=== PATIENT | female | born 1960 | race Caucasian/White ===

== ENCOUNTER → 2018-02-12 | Outpatient (CLI) | payer BC ==
[~2018-02-12] MED LIST: IOHEXOL 350 MG/ML 100 ML (OMNIPAQUE 350) VIAL IV ONE; NS 250 ML (IVPB) BAG IV ONE
[2018-02-12 14:55] LABS: BASOPHILS % (AUTO) 1 % (0-10); EOSINOPHILS # (AUTO) 0.2 10^3/uL (0.0-0.3); EOSINOPHILS % (AUTO) 3 % (0-10); HEMATOCRIT 42 % (35-52); HEMOGLOBIN 14.2 G/DL (11.5-16.0); LYMPHOCYTES # (AUTO) 2.1 X 10^3 (1.0-4.0); LYMPHOCYTES % (AUTO) 29 % (12-44); MEAN CORPUSCULAR HEMOGLOBIN 30 PG (25-34); MEAN CORPUSCULAR HGB CONC 34 G/DL (32-36); MEAN CORPUSCULAR VOLUME 89 FL (80-99); MEAN PLATELET VOLUME 9.9 FL (7.4-10.4); MONOCYTES # (AUTO) 0.5 X 10^3 (0.0-1.0); MONOCYTES % (AUTO) 6 % (0-12); NEUTROPHILS # (AUTO) 4.4 X 10^3 (1.8-7.8); NEUTROPHILS % (AUTO) 61 % (42-75); PLATELET COUNT 317 10^3/uL (130-400); RED BLOOD COUNT 4.72 10^6/uL (4.35-5.85); RED CELL DISTRIBUTION WIDTH 13.6 % (10.0-14.5); WHITE BLOOD COUNT 7.2 10^3/uL (4.3-11.0)
[2018-02-12 15:18] LABS: ALANINE AMINOTRANSFERASE 21 U/L (0-55); ALBUMIN 4.7 GM/DL (3.2-4.5); ALKALINE PHOSPHATASE 38 U/L (40-136); BILIRUBIN,TOTAL 0.5 MG/DL (0.1-1.0); BUN/CREATININE RATIO 15; CALCIUM 9.3 MG/DL (8.5-10.1); CARBON DIOXIDE 22 MMOL/L (21-32); CHLORIDE 105 MMOL/L (98-107); CREATININE SERUM 0.96 MG/DL (0.60-1.30); GFR ESTIMATED 60; GLUCOSE 98 MG/DL (70-105); SODIUM 139 MMOL/L (135-145); TOTAL PROTEIN 8.1 GM/DL (6.4-8.2)
--- NOTE | 2018-02-12 16:32 | Diagnostic Imaging Report ---
PROCEDURE: CT abdomen and pelvis with contrast. TECHNIQUE: Multiple contiguous axial images were obtained through the abdomen and pelvis after administration of intravenous contrast. INDICATION: Right upper quadrant pain, anteriorly and posteriorly. Pain has been intermittent over the past 2 weeks but increasing in severity. CORRELATION STUDY: None. FINDINGS: LOWER THORAX: Minimal atelectasis and/or scarring about the lung bases. No significant basilar infiltrate. LIVER: Several tiny low-density nodules within the liver most compatible with cysts. Liver otherwise unremarkable. GALLBLADDER: Present and unremarkable. No bile duct dilatation. SPLEEN: Unremarkable. PANCREAS: There is abnormal appearance at the level of the pancreatic head with a somewhat honeycombed appearance of what appears to be perhaps multiple microcysts associated with the pancreatic head. This area measures approximately 2.4 x 1.8 cm in axial plane x just under 5 cm craniocaudal length. Some enhancement of the septa appears to be present. The remainder of the body and tail of pancreas unremarkable. Main pancreatic duct does not appear to be abnormally dilated. ADRENAL GLANDS: Unremarkable. KIDNEYS: Probable tiny cyst in left kidney. Kidneys and collecting system otherwise unremarkable. ABDOMINAL AORTA: 1.5 cm splenic artery aneurysm is present which demonstrates predominantly filling of the entire aneurysm with contrast. The abdominal aorta normal in contour with major branches patent. A few small but nonpathologically enlarged central retroperitoneal lymph nodes are present. GASTROINTESTINAL TRACT: No evidence for underlying obstruction. There is suggestion of somewhat diffuse distended fluid-filled loops of small bowel with moderate enhancement. Some areas of asymmetric small bowel wall thickening in the left upper quadrant. Colon with moderate severity fecal retention. No obstruction. Appendix not demonstrated but there are no findings to suggest acute appendicitis. URINARY BLADDER: Unremarkable. REPRODUCTIVE: Uterus is absent. Multiple clips within the pelvis. OSSEOUS STRUCTURES: No acute abnormality. Multilevel degenerative changes are present. Most severe at L5-S1 level with marked disc space narrowing. Osteophyte results in osseous narrowing of the neuroforamina. OTHER: None. IMPRESSION: 1. Suggestion of diffuse enhancement and wall thickening of the small bowel most pronounced in left upper quadrant could reflect nonspecific enteritis or underlying enteropathy. 2. Suggestion of abnormal appearance about the head of the pancreas. Imaging features are nonspecific but could be reflective of changes of perhaps pancreatic serous cystadenoma/microcystic adenoma. Other processes such as intraductal papillary mucinous neoplasm or perhaps other form of pancreatic congenital cyst formation could give this appearance. Consideration for either MRI with and without contrast and/or endoscopic ultrasound may be of additional benefit for further characterization. 3. Approximately 15 mm splenic artery aneurysm. Majority of the aneurysm appears to demonstrate contrast filling. 4. Moderate severity fecal retention/constipation. Dictated by: Dictated on workstation # [id number]
[2018-02-12 17:52] LABS: AMYLASE 130 U/L (25-125)
[2018-02-12 18:16] LABS: LIPASE 50 U/L (8-78)
== END ==
LOC: RAD 14:37
PROVIDERS: ATTEND Nurse Practitioner Family
DX: K59.00 Constipation, unspecified (principal); I72.8 Aneurysm of other specified arteries; Z87.442 Personal history of urinary calculi
CPT/HCPCS: 36415; 74177; 80053; 82150; 83690; 85025

== ENCOUNTER → 2018-02-27 | Outpatient (CLI) | payer BC ==
[~2018-02-27] MED LIST changes: +GADOBUTROL 7.5 MMOL/7.5 ML (GADAVIST) VIAL IV ONE; -IOHEXOL 350 MG/ML 100 ML (OMNIPAQUE 350) VIAL IV ONE; -NS 250 ML (IVPB) BAG IV ONE
--- NOTE | 2018-02-27 10:59 | Diagnostic Imaging Report ---
PROCEDURE: MR imaging abdomen with and without contrast. TECHNIQUE: Multiplanar, multisequence MR imaging of the abdomen was performed with and without contrast. INDICATION: Right-sided pain. Abnormal appearance of the pancreatic head as seen at CT 02/12/2018. Multiplanar and multisequence contrast assisted abdominal MRI utilizing pancreatic protocol performed as further evaluation. A cyst in the right hepatic lobe is simple. There was no enhancing solid or suspicious liver mass. Hepatic and portal veins appeared normal. There are a few stones in the gallbladder. The gallbladder was nondilated its wall non-thickened and there was no pericholecystic fluid. The common hepatic and common bile ducts appeared normal with normal caliber and normal distal tapering. No ductal irregularity, filling defect, stricture or choledocholithiasis. The pancreatic duct is nondilated and showed a normal caliber and course throughout its length without distortion of that duct. No pancreatic glandular atrophy or volume loss. Appearing similar to the previous CT and the ventral aspect of the pancreatic head sparing the uncinate process is a relative diminished signal intensity on the postcontrast enhanced images also showing diminished signal on the opposed phase sequences. This exerts no mass effect and showed no distortion of ductal elements and resulted in no glandular expansion. The area of altered signal intensity measured roughly 1.7 x 1.5 cm. Given its abrupt signal drop off on the opposed phased imaging as well as its relative diminished signal on the fat saturated postcontrast enhanced T1 acquisitions its felt likely to reflect an area of focal fatty infiltration with neoplasm felt significantly less likely. I feel a followup either MR or CT again utilizing pancreatic protocol in 3-6 months time is appropriate to assess expected stability if not resolution of this likely benign finding. Spleen and adrenals are negative and there is no ascites. There is no lymphadenopathy. The marrow signal intensity normal. IMPRESSION: Imaging findings suggest mild fatty infiltration of the pancreatic head appearing similar when correlated with the previous CT. No identifiable mass effect or ductal dilatation or distortion. Anatomic CT versus MRI follow up again to include contrast and pancreatic protocol in 3-6 months time is recommended. Benign hepatic cysts and cholelithiasis without ductal dilatation or choledocholithiasis. Dictated by: Dictated on workstation # [id number]
== END ==
LOC: RAD 09:27
PROVIDERS: ATTEND Nurse Practitioner Family
DX: K76.89 Other specified diseases of liver (principal); K80.20 Calculus of gallbladder without cholecystitis without obstruction
CPT/HCPCS: 74183

== ENCOUNTER 2018-11-09 16:51 | Day surgery (SDC) | payer BC ==
[~2018-11-09] VITALS: Ht 167.6 cm; Wt 71.2 kg
[~2018-11-09 16:51] MED LIST changes: +CYCL10TA9 PO; -GADOBUTROL 7.5 MMOL/7.5 ML (GADAVIST) VIAL IV ONE; +HYDR1TAB8 PO
--- OUTSIDE RECORDS SUMMARY | 2018-11-09 16:55 | XMS REPORT | Clinical Summary ---
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 If you d o not see the information that you expected, contact Release of Information in [facility] [place] [employer] Information Management department at [phone] for further assistan ce in locating additional records.[facility] Allergies No Known Allergies Medications End Date Status Medication Sig Dispensed Refills Start Date Active pantoprazole DR Take 40 mg by 0 (PROTONIX) 40 mg tablet mouth daily. 8 Active traMADol (ULTRAM) 50 mg Take 50 mg by 0 tablet mouth twice 6 daily as needed. Active Problems Problem Noted Date Splenic artery aneurysm 03/17/2018 Social History Date Tobacco Use Types Packs/Day Years Used Former Smoker Smokeless Tobacco: Never Used Sex Assigned at Date Recorded Not on file Industry Job Start Date Occupation Not on file Not on file Not on file Travel End Travel History Travel Start No recent travel history available. Last Filed Vital Signs Reading Time Taken Comments Vital Sign 114/72 03/17/2018 1:17 PM [employer] left arm Blood Pressure 78 03/17/2018 1:17 PM [employer] Pulse 36.7 C (98 F) 03/17/2018 1:17 PM [employer] Temperature 16 03/17/2018 1:17 PM [employer] Respiratory Rate - - Oxygen Saturation - - Inhaled Oxygen Concentration 72.1 kg (159 lb) 03/17/2018 1:17 PM [employer] Weight 167.6 cm (5' 6") 03/17/2018 1:17 PM [employer] Height 25.66 03/17/2018 1:17 PM [employer] Body Mass Index Plan of Treatment Health Maintenance Due Date Last Done Comments HEPATITIS C SCREENING 1961 PHYSICAL (COMPREHENSIVE) 1968 EXAM HIV SCREENING 1976 DTAP/TDAP VACCINES (1 - 08/18/1979 Tdap) CERVICAL CANCER SCREENING 08/18/1991 BREAST CANCER SCREENING 2001 COLORECTAL CANCER 08/18/2011 SCREENING SHINGLES RECOMBINANT 08/18/2011 VACCINE (1 of 2) INFLUENZA VACCINE 02/01/2019 Results Not on filefrom Last 3 Months Insurance Type Payer Benefit Subscriber ID Effective Phone Address Plan / Dates Group [facility] xxxxxxxxxxxx [id number] [employer] 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
--- OUTSIDE RECORDS SUMMARY | 2018-11-09 16:56 | XMS REPORT | CCD ---
Author Author Joanna Vickers MD, [facility] Address [address] [place] [address] Phone Care Team Providers Care Cyber [employer] Planner Name Role Phone PP Unavailable CCM Unavailable Summary Purpose Interface Exchange Insurance Providers Payer name Policy type / Coverage type Covered libertarian ID Effective Begin Date Effective End Date Blue Cross Blue [facility] [employer] [id number] Unknown Family history Mother Diagnosis Age At Onset Hyperlipidemia Unknown Social History Social History Element Codes Description Effective Dates Marital status Unknown [place] 12/25/2015 Number of children Unknown 2 12/25/[address]: 0082769 Quit over 10 years ago 1992 12/25/[address]: 388629 Currently drinks alcohol 12/25/2015 Frequency of drinks SNOMED CT: 617334263 1- 4 drinks per week 12/25/2015 Allergies, Adverse Reactions, Alerts Substance Reaction Codes Entered Date Inactivated Date Status * NO KNOWN DRUG ALLERGIES Unknown 12/25/2015 No Inactive Date Active Past Medical History Illness Codes Condition Status Onset Date Resolved Date Cellulitis of left upper limb ICD-9: 682.3 ICD-10: L03.114 Active 11/08/2018 Unknown Low back pain ICD-9: 724.2 ICD-10: M54.5 Active 04/22/2017 Unknown Muscle spasm of back ICD- 9: 724.8 ICD-10: M62.830 Active 04/22/2017 Unknown Generalized abdominal pain ICD-9: 789.07 ICD-10: R10.84 Active 02/12/2018 Unknown Right upper quadrant pain ICD-9: 789.01 ICD-10: R10.11 Active 12/24/2015 Unknown Slow transit constipation ICD-9: 564.01 ICD-10: K59.01 Active 02/12/2018 Unknown Urinary tract infection, site not specified ICD-9: 599.0 ICD-10: N39.0 Active 09/14/2017 Unknown Other fatigue ICD-9: 780.79 ICD-10: R53.83 Active 04/22/2017 Unknown Other malaise ICD-9: 780.79 ICD-10: R53.81 Active 04/22/2017 Unknown Problems Condition Codes Effective Dates Condition Status Cellulitis of left upper limb ICD-9: 682.3 ICD-10: L03.114 11/08/2018 Active Low back pain ICD-9: 724.2 ICD-10: M54.5 04/22/2017 Active Muscle spasm of back ICD- 9: 724.8 ICD-10: M62.830 04/22/2017 Active Generalized abdominal pain ICD-9: 789.07 ICD-10: R10.84 02/12/2018 Active Right upper quadrant pain ICD-9: 789.01 ICD-10: R10.11 12/24/2015 Active Slow transit constipation ICD-9: 564.01 ICD-10: K59.01 02/12/2018 Active Urinary tract infection, site not specified ICD-9: 599.0 ICD-10: N39.0 09/14/2017 Active Other fatigue ICD-9: 780.79 ICD-10: R53.83 04/22/2017 Active Other malaise ICD-9: 780.79 ICD-10: R53.81 04/22/2017 Active Medications Medication Codes Instructions Start Date Stop Date Status Fill Instructions doxycycline hyclate 100 mg capsule RxNorm: 1059592 1 Capsule(s) PO BID 11/08/2018 11/17/2018 Active cyclobenzaprine 5 mg tablet RxNorm: 911067 1-2 Tablet(s) PO TID as needed 06/14/2018 06/18/2018 Inactive naproxen 500 mg tablet RxNorm: 340755 1 Tablet(s) PO BID 06/14/2018 06/18/2018 Inactive pantoprazole 40 mg tablet,delayed release RxNorm: 326320 1 Tablet(s) PO daily 06/01/2018 06/30/2018 Inactive tramadol 50 mg tablet RxNorm: 122419 1 Tablet(s) PO Q6 as needed 06/01/2018 No Stop Date Active tramadol 50 mg tablet RxNorm: 213376 1 Tablet(s) PO Q6 as needed 05/11/2018 05/31/2018 Inactive tramadol 50 mg tablet RxNorm: 317588 1 Tablet(s) PO Q6 as needed 04/21/2018 05/10/2018 Inactive tramadol 50 mg tablet RxNorm: 907148 1 Tablet(s) PO Q6 as needed 04/02/2018 04/20/2018 Inactive tramadol 50 mg tablet RxNorm: 816516 1 Tablet(s) PO Q6 as needed 03/18/2018 04/01/2018 Inactive pantoprazole 40 mg tablet,delayed release RxNorm: 387600 1 Tablet(s) PO daily 02/26/2018 02/25/2018 Inactive pantoprazole 40 mg tablet,delayed release RxNorm: 040316 1 Tablet(s) PO daily 02/26/2018 03/27/2018 Inactive tramadol 50 mg tablet RxNorm: 050181 1 Tablet(s) PO Q6 as needed 02/26/2018 03/17/2018 Inactive Keflex 500 mg capsule RxNorm: 677157 1 Capsule(s) PO TID 09/14/2017 09/20/2017 Inactive Keflex 500 mg capsule RxNorm: 139032 1 Capsule(s) PO TID 09/14/2017 09/13/2017 Inactive cyclobenzaprine 5 mg tablet RxNorm: 217111 1-2 Tablet(s) PO TID as needed 04/22/2017 04/26/2017 Inactive tramadol 50 mg tablet RxNorm: 606128 Tablet(s) PO Q6 as needed 12/25/2015 02/25/2018 Inactive Vitamin B & C oral RxNorm: 400727 oral No Start Date Active Multiple Vitamin oral RxNorm: 61154 oral No Start Date Active tramadol 50 mg tablet RxNorm: 996210 Tablet(s) PO as needed No Start Date 12/24/2015 Inactive Medication Administered No Medication Administered data Immunizations No Immunization data Assessments Condition Codes Effective Dates Cellulitis of left upper limb ICD-10: L03.114 ICD-9: 682.3 11/08/2018 Low back pain ICD-10: M54.5 ICD-9: 724.2 06/14/2018 Muscle spasm of back ICD-10: M62.830 ICD-9: 724.8 06/14/2018 Right upper quadrant pain ICD-10: R10.11 ICD-9: 789.01 02/12/2018 Slow transit constipation ICD-10: K59.01 ICD-9: 564.01 02/12/2018 Generalized abdominal pain ICD-10: R10.84 ICD-9: 789.07 02/12/2018 Urinary tract infection, site not specified ICD-10: N39.0 ICD-9: 599.0 09/14/2017 Other fatigue ICD-10: R53.83 ICD-9: 780.79 04/22/2017 Other malaise ICD-10: R53.81 ICD-9: 780.79 04/22/2017 Reason For Visit Reason For Visit Effective Dates Notes arthropod bite 11/08/2018 back pain 06/14/2018 abdominal pain 02/12/2018 back pain 04/22/2017 abdominal pain 12/25/2015 Results Observation Observation Code Item Item Code Result Date Urine Culture Ucult Complete >100,000 col/ml aerobic growth sent to ref lab 09/15/2017 [place] Spotted Fever Igg/Igm [id number] [place] SPOTTED FEVER IGM EIA . 04/30/2017 [place] Spotted Fever Igg/Igm 096240 RMSF, IGM 0.17 index 04/30/2017 [place] Spotted Fever Igg/Igm [id number] [place] MT SPOTTED FEVER IGG EIA FLEX . 04/30/2017 [place] Spotted Fever Igg/Igm [id number] RMSF, IGG SCREEN-FLEX Negative 04/30/2017 Ehrlichia Chaffeensis Antibody Igm [id number] EHRLICHIA CHAFFEENSIS IGM < 1:16 04/29/2017 Ehrlichia Chaffeensis Antibody Igg [id number] EHRLICHIA CHAFFEENSIS IGG <1:64 04/29/2017 Lymes Disease Total Antibodies With Western Blot Reflex [id number] B. BURGDORFERI, IGG/IGM 0.31 04/24/2017 Lymes Disease Total Antibodies With Western Blot Reflex [id number] 04/24/2017 Tsh Ord6 hTSH II 2.10 uIU/mL 04/22/2017 C-Reactive Protein Qnt Crqnt CRP 0.1 mg/dl 04/22/2017 Cbc With Differential Ord2 WBC 7.35 K/ul 04/22/2017 Cbc With Differential Ord2 RBC 5.00 M/ul 04/22/2017 Cbc With Differential Ord2 HGB 15.0 g/dl 04/22/2017 Cbc With Differential Ord2 HCT 45.0 % 04/22/2017 Cbc With Differential Ord2 Neut% 57.6 % 04/22/2017 Cbc With Differential Ord2 MCV 90.0 fl 04/22/2017 Cbc With Differential Ord2 Lymph% 32.0 % 04/22/2017 Cbc With Differential Ord2 MCH 30.0 pg 04/22/2017 Cbc With Differential Ord2 [place]% 6.9 % 04/22/2017 Cbc With Differential Ord2 MCHC 33.3 pg 04/22/2017 Cbc With Differential Ord2 Eos% 3.1 % 04/22/2017 Cbc With Differential Ord2 PLT 291 K/ul 04/22/2017 Cbc With Differential Ord2 Baso% 0.4 % 04/22/2017 Cbc With Differential Ord2 RDW 14.0 % 04/22/2017 Cbc With Differential Ord2 Neut ABS# 4.23 K/ul 04/22/2017 Cbc With Differential Ord2 Lymph ABS# 2.35 K/ul 04/22/2017 Cbc With Differential Ord2 [place] ABS# 0.5 K/ul 04/22/2017 Cbc With Differential Ord2 Eos ABS# 0.2 K/ul 04/22/2017 Cbc With Differential Ord2 Baso ABS# 0.0 K/ul 04/22/2017 Comp Metabolic Dzf644 NA 138 mEq/L 04/22/2017 Comp Metabolic Aed126 K 4.5 mEq/L 04/22/2017 Comp Metabolic Icb704 CL 102 mEq/L 04/22/2017 Comp Metabolic The086 CO2 26.0 mEq/L 04/22/2017 Comp Metabolic Yhl947 ANION GAP 15 04/22/2017 Comp Metabolic Zfs545 GLUCOSE 87 mg/dL 04/22/2017 Comp Metabolic Bec876 Creat 1.0 mg/dL 04/22/2017 Comp Metabolic Xiz301 eGFR 62 ml/min/1.73m2 04/22/2017 Comp Metabolic Wjq262 BUN 15 mg/dL 04/22/2017 Comp Metabolic Ohq507 B/C Ratio 15.3 Ratio 04/22/2017 Comp Metabolic Nsg361 CALCIUM 9.5 mg/dL 04/22/2017 Comp Metabolic Gdv760 ALK PHOS 39 U/L 04/22/2017 Comp Metabolic Sar608 AST(SGOT) 18 U/L 04/22/2017 Comp Metabolic Frx670 ALT(SGPT) 16 U/L 04/22/2017 Comp Metabolic Tlm884 BILI T 0.4 mg/dL 04/22/2017 Comp Metabolic Chh399 ALBUMIN 4.8 g/dL 04/22/2017 Comp Metabolic Mfg195 TPRO 7.1 g/dL 04/22/2017 Comp Metabolic Ven053 GLOB 2.3 g/dL 04/22/2017 Comp Metabolic Cjo137 A/G Ratio 2.1 Ratio 04/22/2017 Comp Metabolic Rxj888 Osmo 276 mOsmo 04/22/2017 Sed Rate Ord21 ESR 1 mm/hr 04/22/2017 Comp Metabolic Zvt412 NA 137 mEq/L 12/25/2015 Comp Metabolic Lof248 K 4.2 mEq/L 12/25/2015 Comp Metabolic Wgp979 CL 105 mEq/L 12/25/2015 Comp Metabolic Ami598 CO2 26.0 mEq/L 12/25/2015 Comp Metabolic Idm768 ANION GAP 10 12/25/2015 Comp Metabolic Ols912 GLUCOSE 92 mg/dL 12/25/2015 Comp Metabolic Ezv822 Creat 1.0 mg/dL 12/25/2015 Comp Metabolic Qzh357 eGFR 62 ml/min/1.73m2 12/25/2015 Comp Metabolic Why799 BUN 15 mg/dL 12/25/2015 Comp Metabolic Mxo618 B/C Ratio 15.2 Ratio 12/25/2015 Comp Metabolic Apn538 CALCIUM 9.6 mg/dL 12/25/2015 Comp Metabolic Skf524 ALK PHOS 30 U/L 12/25/2015 Comp Metabolic Nke754 AST(SGOT) 17 U/L 12/25/2015 Comp Metabolic Top491 ALT(SGPT) 16 U/L 12/25/2015 Comp Metabolic Oxd161 BILI T 0.6 mg/dL 12/25/2015 Comp Metabolic Gsp797 ALBUMIN 4.7 g/dL 12/25/2015 Comp Metabolic Izz836 TPRO 7.0 g/dL 12/25/2015 Comp Metabolic Trk764 GLOB 2.3 g/dL 12/25/2015 Comp Metabolic Gjy180 A/G Ratio 2.0 Ratio 12/25/2015 Comp Metabolic Btn797 Osmo 274 mOsmo 12/25/2015 Amylase Ord34 AMYLASE 68 U/L 12/25/2015 Lipid Ord30 CHOL 253 mg/dL 12/25/2015 Lipid Ord30 HDL 61.0 mg/dl 12/25/2015 Lipid Ord30 TRIG 75 mg/dL 12/25/2015 Lipid Ord30 LDL 177 mg/dL 12/25/2015 Lipid Ord30 C/HDL 4.1 Ratio 12/25/2015 Cbc With Differential Ord2 WBC 4.75 K/ul 12/25/2015 Cbc With Differential Ord2 RBC 4.95 M/ul 12/25/2015 Cbc With Differential Ord2 HGB 15.0 g/dl 12/25/2015 Cbc With Differential Ord2 HCT 44.2 % 12/25/2015 Cbc With Differential Ord2 Neut% 55.2 % 12/25/2015 Cbc With Differential Ord2 MCV 89.3 fl 12/25/2015 Cbc With Differential Ord2 Lymph% 32.8 % 12/25/2015 Cbc With Differential Ord2 MCH 30.3 pg 12/25/2015 Cbc With Differential Ord2 [place]% 8.0 % 12/25/2015 Cbc With Differential Ord2 MCHC 33.9 pg 12/25/2015 Cbc With Differential Ord2 Eos% 3.4 % 12/25/2015 Cbc With Differential Ord2 PLT 249 K/ul 12/25/2015 Cbc With Differential Ord2 Baso% 0.6 % 12/25/2015 Cbc With Differential Ord2 RDW 13.5 % 12/25/2015 Cbc With Differential Ord2 Neut ABS# 2.62 K/ul 12/25/2015 Cbc With Differential Ord2 Lymph ABS# 1.56 K/ul 12/25/2015 Cbc With Differential Ord2 [place] ABS# 0.4 K/ul 12/25/2015 Cbc With Differential Ord2 Eos ABS# 0.2 K/ul 12/25/2015 Cbc With Differential Ord2 Baso ABS# 0.0 K/ul 12/25/2015 Tsh Ord6 hTSH II 0.99 uIU/mL 12/25/2015 Review of Systems System Result Effective Dates Constitutional No recent illness 11/08/2018 Constitutional No chills 11/08/2018 Constitutional No diaphoresis 11/08/2018 Constitutional No fever 11/08/2018 Eyes No eye erythema 11/08/2018 Ears/Nose/Throat/Neck No nasal discharge 11/08/2018 Cardiovascular No chest pain/pressure 11/08/2018 Respiratory No cough 11/08/2018 Neurologic No alteration of consciousness 11/08/2018 Neurologic No mental status change 11/08/2018 Dermatologic cellulitis 11/08/2018 Constitutional No recent illness 06/14/2018 Constitutional No chills 06/14/2018 Constitutional No fever 06/14/2018 Eyes No eye erythema 06/14/2018 Ears/Nose/Throat/Neck No nasal discharge 06/14/2018 Cardiovascular No chest pain/pressure 06/14/2018 Cardiovascular No dyspnea 06/14/2018 Respiratory No cough 06/14/2018 Respiratory No dyspnea 06/14/2018 Musculoskeletal joint complaint 06/14/2018 Neurologic No alteration of consciousness 06/14/2018 Neurologic No mental status change 06/14/2018 Genitourinary/Nephrology flank pain 06/14/2018 Constitutional No recent illness 02/12/2018 Constitutional No chills 02/12/2018 Constitutional No diaphoresis 02/12/2018 Constitutional No fever 02/12/2018 Constitutional fatigue 02/12/2018 Eyes No eye erythema 02/12/2018 Ears/Nose/Throat/Neck No nasal discharge 02/12/2018 Ears/Nose/Throat/Neck No nasal allergies 02/12/2018 Cardiovascular No chest pain/pressure 02/12/2018 Cardiovascular No dyspnea 02/12/2018 Respiratory No cough 02/12/2018 Respiratory No chest congestion 02/12/2018 Gastrointestinal abdominal pain 02/12/2018 Gastrointestinal No constipation 02/12/2018 Gastrointestinal No diarrhea 02/12/2018 Gastrointestinal No vomiting 02/12/2018 Gastrointestinal No nausea 02/12/2018 Gastrointestinal No melena 02/12/2018 Gastrointestinal No hematochezia 02/12/2018 Gastrointestinal gastroesophageal reflux 02/12/2018 Genitourinary/Nephrology No dysuria 02/12/2018 Genitourinary/Nephrology flank pain 02/12/2018 Musculoskeletal No joint complaint 02/12/2018 Dermatologic No rash 02/12/2018 Neurologic No alteration of consciousness 02/12/2018 Neurologic No mental status change 02/12/2018 Constitutional No recent illness 04/22/2017 Constitutional No chills 04/22/2017 Constitutional No diaphoresis 04/22/2017 Constitutional No fever 04/22/2017 Constitutional fatigue 04/22/2017 Constitutional malaise 04/22/2017 Constitutional insomnia 04/22/2017 Constitutional weight gain 04/22/2017 Eyes No eye erythema 04/22/2017 Ears/Nose/Throat/Neck No nasal discharge 04/22/2017 Ears/Nose/Throat/Neck No nasal allergies 04/22/2017 Cardiovascular No chest pain/pressure 04/22/2017 Cardiovascular No dyspnea 04/22/2017 Respiratory No cough 04/22/2017 Respiratory No chest congestion 04/22/2017 Gastrointestinal No abdominal pain 04/22/2017 Gastrointestinal No constipation 04/22/2017 Gastrointestinal No diarrhea 04/22/2017 Musculoskeletal back pain 04/22/2017 Dermatologic No rash 04/22/2017 Neurologic No alteration of consciousness 04/22/2017 Neurologic No mental status change 04/22/2017 Constitutional No recent illness 12/25/2015 Constitutional No anorexia 12/25/2015 Constitutional No night sweats 12/25/2015 Constitutional No chills 12/25/2015 Constitutional No diaphoresis 12/25/2015 Constitutional No fatigue 12/25/2015 Constitutional No fever 12/25/2015 Constitutional No insomnia 12/25/2015 Constitutional No malaise 12/25/2015 Constitutional No weight loss 12/25/2015 Constitutional No weight gain 12/25/2015 Eyes No eye discharge 12/25/2015 Eyes No eye erythema 12/25/2015 Gastrointestinal abdominal pain 12/25/2015 Gastrointestinal No constipation 12/25/2015 Gastrointestinal No diarrhea 12/25/2015 Gastrointestinal No vomiting 12/25/2015 Gastrointestinal nausea 12/25/2015 Ears/Nose/Throat/Neck No dizziness 12/25/2015 Ears/Nose/Throat/Neck headache 12/25/2015 Cardiovascular No chest pain/pressure 12/25/2015 Cardiovascular No dyspnea 12/25/2015 Cardiovascular No edema 12/25/2015 Respiratory No cough 12/25/2015 Genitourinary/Nephrology No dysuria 12/25/2015 Genitourinary/Nephrology urinary frequency 12/25/2015 Genitourinary/Nephrology urinary urgency 12/25/2015 Musculoskeletal No joint complaint 12/25/2015 Dermatologic No rash 12/25/2015 Dermatologic No sores 12/25/2015 Neurologic No alteration of consciousness 12/25/2015 Psychiatric No anxiety 12/25/2015 Psychiatric No depression 12/25/2015 Endocrine No dry or coarse skin 12/25/2015 Hematologic/Lymphatic No abnormal ecchymoses 12/25/2015 Physical Exam Exam Name System Name Item Name Status Result Effective Dates Notes Full Exam - Dermatology Constitutional general appearance Overall: well nourished 11/08/2018 None Full Exam - Dermatology Constitutional general appearance Overall: well developed 11/08/2018 None Full Exam - Dermatology Constitutional general appearance Overall: in no acute distress 11/08/2018 None Full Exam - Dermatology Eyes conjunctiva/eyelids Overall: clear conjunctiva bilaterally 11/08/2018 None Full Exam - Dermatology Eyes conjunctiva/eyelids Overall: clear corneas 11/08/2018 None Full Exam - Dermatology Eyes conjunctiva/eyelids Overall: normal eyelids 11/08/2018 None Full Exam - Dermatology Ears/Nose/Throat lips/teeth/gingiva Overall: benign lips 11/08/2018 None Full Exam - Dermatology Ears/Nose/Throat oropharynx Overall: clear oral mucosa 11/08/2018 None Full Exam - Dermatology Respiratory respiratory effort/rhythm Overall: no retractions 11/08/2018 None Full Exam - Dermatology Respiratory respiratory effort/rhythm Overall: normal rate 11/08/2018 None Full Exam - Dermatology Musculoskeletal head and neck Overall: head atraumatic 11/08/2018 None Full Exam - Dermatology Psychiatric orientation Overall: oriented to person, place and time 11/08/2018 None Full Exam - Dermatology Psychiatric mood and affect Overall: normal mood and affect 11/08/2018 None Full Exam - Dermatology Integument insp & palp - left upper extremity Lesion: patch 11/08/2018 11cm x 7cm Full Exam - Dermatology Integument insp & palp - left upper extremity Location: in the antecubital fossa 11/08/2018 None Full Exam - Dermatology Integument insp & palp - left upper extremity Color: erythematous 11/08/2018 None Full Exam - Dermatology Integument insp & palp - left upper extremity Consistency: tender 11/08/2018 None Full Exam - Dermatology Integument insp & palp - left upper extremity Appearance: edematous 11/08/2018 None Full Exam - Orthopedics Constitutional general appearance Overall: well nourished 06/14/2018 None Full Exam - Orthopedics Constitutional general appearance Overall: well developed 06/14/2018 None Full Exam - Orthopedics Constitutional general appearance Overall: in no acute distress 06/14/2018 None Full Exam - Orthopedics Eyes conjunctiva/eyelids Overall: conjunctiva clear 06/14/2018 None Full Exam - Orthopedics Eyes conjunctiva/eyelids Overall: eyelids normal 06/14/2018 None Full Exam - Orthopedics Ears/Nose/Throat lips/teeth/gingiva Overall: benign lips 06/14/2018 None Full Exam - Orthopedics Ears/Nose/Throat oral cavity/pharynx/larynx Overall: oral mucosa clear 06/14/2018 None Full Exam - Orthopedics Respiratory respiratory effort/rhythm Overall: no retractions 06/14/2018 None Full Exam - Orthopedics Respiratory respiratory effort/rhythm Overall: normal rate 06/14/2018 None Full Exam - Orthopedics Psychiatric orientation/consciousness Overall: oriented to person, place and time 06/14/2018 None Full Exam - Orthopedics Psychiatric mood and affect Overall: normal mood and affect 06/14/2018 None Full Exam - Orthopedics Psychiatric appearance Overall: well-groomed, good eye contact 06/14/2018 None Full Exam - Orthopedics Musculoskeletal gait and station Overall: normal gait 06/14/2018 None Full Exam - Orthopedics MS: head/neck insp & palp - H/N Overall: head atraumatic 06/14/2018 None Full Exam - Orthopedics MS: spine/rib/pelvis insp & palp - S/R/P Lumbar spine palpation: tender lumbar spinous processes 06/14/2018 None Full Exam - Orthopedics MS: spine/rib/pelvis insp & palp - S/R/P Lumbar spine palpation: tender facet joints 06/14/2018 None Full Exam - General 1994 Constitutional general appearance Overall: well developed 02/12/2018 None Full Exam - General 1994 Constitutional general appearance Overall: in no acute distress 02/12/2018 None Full Exam - General 1994 Constitutional general appearance Overall: well nourished 02/12/2018 None Full Exam - General 1994 Eyes conjunctiva/eyelids Overall: eyelids normal 02/12/2018 None Full Exam - General 1994 Eyes conjunctiva/eyelids Overall: cornea clear 02/12/2018 None Full Exam - General 1994 Eyes conjunctiva/eyelids Overall: conjunctiva clear 02/12/2018 None Full Exam - General 1994 Ears/Nose/Throat lips/teeth/gingiva Overall: benign lips 02/12/2018 None Full Exam - General 1994 Ears/Nose/Throat oral cavity/pharynx/larynx Overall: oral mucosa clear 02/12/2018 None Full Exam - General 1994 Ears/Nose/Throat oral cavity/pharynx/larynx Overall: oropharyngeal mucosa clear 02/12/2018 None Full Exam - General 1994 Respiratory respiratory effort/rhythm Overall: normal rate 02/12/2018 None Full Exam - General 1994 Respiratory respiratory effort/rhythm Overall: no retractions 02/12/2018 None Full Exam - General 1994 Respiratory auscultation Overall: breath sounds clear bilaterally 02/12/2018 None Full Exam - General 1994 Cardiovascular auscultation of heart Overall: normal heart sounds 02/12/2018 None Full Exam - General 1994 Cardiovascular auscultation of heart Overall: regular rate 02/12/2018 None Full Exam - General 1994 Cardiovascular extremities Overall: no clubbing 02/12/2018 None Full Exam - General 1994 Abdomen abdominal exam Overall: normal bowel sounds 02/12/2018 None Full Exam - General 1994 Abdomen abdominal exam Upper quadrant: tender to palpation 02/12/2018 None Full Exam - General 1994 Abdomen abdominal exam Upper quadrant: dull pain 02/12/2018 None Full Exam - General 1994 Abdomen abdominal exam Upper quadrant: no guarding 02/12/2018 None Full Exam - General 1994 Abdomen abdominal exam Upper quadrant: no rebound tenderness 02/12/2018 None Full Exam - General 1994 Abdomen abdominal exam Upper quadrant: soft 02/12/2018 None Full Exam - General 1994 Abdomen abdominal exam Lower quadrant: tender to palpation 02/12/2018 None Full Exam - General 1994 Abdomen abdominal exam Lower quadrant: dull pain 02/12/2018 None Full Exam - General 1994 Abdomen abdominal exam Lower quadrant: no guarding 02/12/2018 None Full Exam - General 1994 Abdomen abdominal exam Lower quadrant: no rebound tenderness 02/12/2018 None Full Exam - General 1994 Abdomen abdominal exam Lower quadrant: soft 02/12/2018 None Full Exam - General 1994 Abdomen abdominal exam Epigastric: tender to palpation 02/12/2018 None Full Exam - General 1994 Abdomen abdominal exam Epigastric: dull pain 02/12/2018 None Full Exam - General 1994 Abdomen abdominal exam Epigastric: no guarding 02/12/2018 None Full Exam - General 1994 Abdomen abdominal exam Epigastric: no rebound tenderness 02/12/2018 None Full Exam - General 1994 Abdomen abdominal exam Epigastric: soft 02/12/2018 None Full Exam - General 1994 Musculoskeletal head and neck Overall: head atraumatic 02/12/2018 None Full Exam - General 1994 Musculoskeletal gait and station Overall: normal station 02/12/2018 None Full Exam - General 1994 Musculoskeletal gait and station Overall: normal gait 02/12/2018 None Full Exam - General 1994 Neurologic cranial nerves Overall: crainial nerves 2 - 12 grossly intact 02/12/2018 None Full Exam - General 1994 Psychiatric orientation/consciousness Overall: oriented to person, place and time 02/12/2018 None Full Exam - General 1994 Psychiatric mood and affect Overall: normal mood and affect 02/12/2018 None Full Exam - General 1994 Psychiatric appearance Overall: well-groomed, good eye contact 02/12/2018 None Full Exam - General 1994 Constitutional general appearance Overall: well developed 04/22/2017 None Full Exam - General 1994 Constitutional general appearance Overall: in no acute distress 04/22/2017 None Full Exam - General 1994 Constitutional general appearance Overall: well nourished 04/22/2017 None Full Exam - General 1994 Eyes conjunctiva/eyelids Overall: conjunctiva clear 04/22/2017 None Full Exam - General 1994 Eyes pupils and irises Overall: pupils equal, round, reactive to light and accomodation 04/22/2017 None Full Exam - General 1994 Ears/Nose/Throat oral cavity/pharynx/larynx Overall: oral mucosa clear 04/22/2017 None Full Exam - General 1994 Neck thyroid Overall: normal size 04/22/2017 None Full Exam - General 1994 Respiratory auscultation Overall: breath sounds clear bilaterally 04/22/2017 None Full Exam - General 1994 Respiratory respiratory effort/rhythm Overall: no retractions 04/22/2017 None Full Exam - General 1994 Respiratory respiratory effort/rhythm Overall: normal rate 04/22/2017 None Full Exam - General 1994 Cardiovascular auscultation of heart Overall: regular rate 04/22/2017 None Full Exam - General 1994 Cardiovascular auscultation of heart Overall: normal heart sounds 04/22/2017 None Full Exam - General 1994 Lymphatic neck nodes Overall: anterior cervical chain benign 04/22/2017 None Full Exam - General 1994 Lymphatic neck nodes Overall: posterior cervical chain benign 04/22/2017 None Full Exam - General 1994 Musculoskeletal gait and station Overall: normal gait 04/22/2017 None Full Exam - General 1994 Musculoskeletal gait and station Overall: normal station 04/22/2017 None Full Exam - General 1994 Musculoskeletal head and neck Overall: head atraumatic 04/22/2017 None Full Exam - General 1994 Neurologic cranial nerves Overall: crainial nerves 2 - 12 grossly intact 04/22/2017 None Full Exam - General 1994 Psychiatric orientation/consciousness Overall: oriented to person, place and time 04/22/2017 None Full Exam - General 1994 Ears/Nose/Throat lips/teeth/gingiva Overall: benign lips 04/22/2017 None Full Exam - General 1994 Ears/Nose/Throat otoscopic exam Overall: external auditory canals clear 04/22/2017 None Full Exam - General 1994 Ears/Nose/Throat otoscopic exam Tympanic membrane: air-fluid level 04/22/2017 None Full Exam - General 1994 Ears/Nose/Throat oral cavity/pharynx/larynx Posterior Pharynx: clear post nasal drainage 04/22/2017 None Full Exam - General 1994 Musculoskeletal spine, ribs and pelvis Spine: tender @ lumbar spine 04/22/2017 None Full Exam - General 1994 Musculoskeletal spine, ribs and pelvis Sacroiliac joints: tender left sacroiliac joint 04/22/2017 None Full Exam - General 1994 Musculoskeletal spine, ribs and pelvis Sacroiliac joints: tender right sacroiliac joint 04/22/2017 None Full Exam - General 1994 Psychiatric mood and affect Overall: normal mood and affect 04/22/2017 None Full Exam - General 1994 Constitutional general appearance Overall: well developed 12/25/2015 None Full Exam - General 1994 Constitutional general appearance Overall: in no acute distress 12/25/2015 None Full Exam - General 1994 Constitutional general appearance Overall: well nourished 12/25/2015 None Full Exam - General 1994 Psychiatric orientation/consciousness Overall: oriented to person, place and time 12/25/2015 None Full Exam - General 1994 Neurologic cranial nerves Overall: crainial nerves 2 - 12 grossly intact 12/25/2015 None Full Exam - General 1994 Integument inspection of skin Overall: few scattered moles, no gross abnormalities 12/25/2015 None Full Exam - General 1994 Musculoskeletal gait and station Overall: normal gait 12/25/2015 None Full Exam - General 1994 Musculoskeletal gait and station Overall: normal station 12/25/2015 None Full Exam - General 1994 Musculoskeletal head and neck Overall: head atraumatic 12/25/2015 None Full Exam - General 1994 Lymphatic neck nodes Overall: anterior cervical chain benign 12/25/2015 None Full Exam - General 1994 Lymphatic neck nodes Overall: posterior cervical chain benign 12/25/2015 None Full Exam - General 1994 Abdomen abdominal exam Overall: normal bowel sounds 12/25/2015 None Full Exam - General 1994 Abdomen abdominal exam Upper quadrant: tender to palpation 12/25/2015 None Full Exam - General 1994 Cardiovascular auscultation of heart Overall: regular rate 12/25/2015 None Full Exam - General 1994 Cardiovascular auscultation of heart Overall: normal heart sounds 12/25/2015 None Full Exam - General 1994 Cardiovascular auscultation of heart Overall: no murmurs 12/25/2015 None Full Exam - General 1994 Respiratory auscultation Overall: breath sounds clear bilaterally 12/25/2015 None Full Exam - General 1994 Respiratory respiratory effort/rhythm Overall: no retractions 12/25/2015 None Full Exam - General 1994 Respiratory respiratory effort/rhythm Overall: normal rate 12/25/2015 None Full Exam - General 1994 Neck thyroid Overall: normal size 12/25/2015 None Full Exam - General 1994 Ears/Nose/Throat otoscopic exam Overall: external auditory canals clear 12/25/2015 None Full Exam - General 1994 Ears/Nose/Throat otoscopic exam Overall: tympanic membranes clear 12/25/2015 None Full Exam - General 1994 Ears/Nose/Throat oral cavity/pharynx/larynx Overall: oral mucosa clear 12/25/2015 None Full Exam - General 1994 Eyes conjunctiva/eyelids Overall: conjunctiva clear 12/25/2015 None Full Exam - General 1994 Eyes pupils and irises Overall: pupils equal, round, reactive to light and accomodation 12/25/2015 None Procedures Procedure Codes Date URINALYSIS NONAUTO W/O SCOPE CPT-4: 33570 09/14/2017 URINALYSIS NONAUTO W/O SCOPE CPT-4: 73660 12/25/2015 Vital Signs Date Vital 11/08/2018 Blood Pressure 1: 94/60 Code: 8480-6 BMI: 25.7 Code: 60141- 5 Heart Rate 1: 72 bpm Height: 5'6" SpO2: 96% Weight: 159 lbs 06/14/2018 Blood Pressure 1: 110/68 Code: 8480-6 BMI: 26.0 Code: 61359-8 Heart Rate 1: 73 bpm Height: 5'6" SpO2: 97% Weight: 161 lbs 02/12/2018 Blood Pressure 1: 104/60 Code: 8480-6 BMI: 26.1 Code: 02980-9 Heart Rate 1: 71 bpm Height: 5'6" SpO2: 95% Weight: 162 lbs 04/22/2017 Blood Pressure 1: 118/68 Code: 8480-6 Heart Rate 1: 72 bpm Height: SpO2: 98% Weight: 12/25/2015 Blood Pressure 1: 120/70 Code: 8480-6 BMI: 25.0 Code: 36226-3 Heart Rate 1: 82 bpm Height: 5'6" SpO2: 97% Weight: 155 lbs Functional Status No Functional Status data History of Present Illness Symptom Name Status Result Effective Date Notes Quality constant 11/08/2018 None Location on the left arm 11/08/2018 None Onset of Symptom 6 days ago 11/08/2018 None Location in the right middle back area 06/14/2018 None Quality constant 06/14/2018 None Quality aching 06/14/2018 None Quality discomfort 06/14/2018 None Quality squeezing 06/14/2018 None Onset and Resolution ongoing 06/14/2018 None abdominal pain Location in the RUQ 02/12/2018 None abdominal pain Radiating the flank 02/12/2018 None abdominal pain Quality aching 02/12/2018 None abdominal pain Quality constant 02/12/2018 None abdominal pain Quality stabbing 02/12/2018 None abdominal pain Onset and Resolution sudden in onset 02/12/2018 None abdominal pain Onset of Symptom 2 weeks ago 02/12/2018 None abdominal pain Frequency of Episodes daily 02/12/2018 None abdominal pain Timing of Episodes all day long 02/12/2018 None back pain Location lumbar-sacral spine 04/22/2017 None back pain Quality acute 04/22/2017 None back pain Limitation on Activities moderately limits activities 04/22/2017 None back pain Pertinent Findings Denies fever 04/22/2017 None fatigue Limitation on Activities moderately limits activities 04/22/2017 None fatigue Pertinent Findings Denies fever 04/22/2017 None abdominal pain Location in the RUQ 12/25/2015 None abdominal pain Radiating the back 12/25/2015 None abdominal pain Radiating the flank 12/25/2015 None abdominal pain Quality intermittent 12/25/2015 None abdominal pain Onset of Symptom 2-3 weeks ago 12/25/2015 None abdominal pain Pertinent Findings abdominal distension 12/25/2015 None abdominal pain Pertinent Findings back pain 12/25/2015 None abdominal pain Pertinent Findings Denies heartburn 12/25/2015 None Advance Directives No Advance Directive data Encounters Encounter Performer Location Codes Date EST. PATIENT, LEVEL III Diagnosis: Cellulitis of left upper limb[ICD10: L03.114] [facility] CPT-4: 03723 11/08/2018 [id number] EST. PATIENT, LEVEL III Diagnosis: Low back pain[ICD10: M54.5] Diagnosis: Muscle spasm of back[ICD10: M62.830] [facility] CPT- 4: 86850 06/14/2018 44553 EST. PATIENT, LEVEL IV Diagnosis: Right upper quadrant pain[ICD10: R10.11] Diagnosis: Generalized abdominal pain[ICD10: R10.84] Diagnosis: Slow transit constipation[ICD10: K59.01] [facility] CPT-4: 70393 02/12/2018 31635 EST. PATIENT, LEVEL IV Diagnosis: Other fatigue[ICD10: R53.83] Diagnosis: Other malaise[ICD10: R53.81] Diagnosis: Low back pain[ICD10: M54.5] Diagnosis: Muscle spasm of back[ICD10: M62.830] April Melvin MD, [facility] CPT- 4: 96588 04/22/2017 ([id number]) OFFICE VISIT, NEW - LEVEL 3 Diagnosis: Right upper quadrant pain[ICD10: R10.11] Joanna Melvin MD, [facility] CPT-4: 21894 12/25/2015 Plan of Care Planned Activity Notes Codes Status Date Visit Plan: Cellulitis - Dr. Melvin in to evaluate pt - will change abx and send for IV dose of abx - continue with oral antibiotics as previously directed, return to clinic as previously directed, call for acute change in symptoms, worsening redness, warmth, discharge. 11/08/2018 Visit Plan: Cellulitis - Dr. Melvin in to evaluate pt - will change abx and send for IV dose of abx - continue with oral antibiotics as previously directed, return to clinic as previously directed, call for acute change in symptoms, worsening redness, warmth, discharge. ADDENDUM: Doctor's eval of the patient - I, Dr. Melvin, personally evaluated the patient with the nurse practitioner. I have reviewed the patient's chart, I have reviewed the patient's past medical history, problem list, medication list, and personal history. I agree with the documentation by the nurse practitioner in the HPI, physical exam, and the assessment and plan. 11/08/2018 Patient Education: Patient Medication Summary Completed 11/08/2018 Visit Plan: muscle spasms, back pain- the patient was instructed in appropriate posture. The pt is to use prn antiinflammatories to manage acute pain. The patient is to call the office if the pain is worsening or does not improve. Keep appointments with GI specialist - notify clinic with any changes in the current treatment plan 06/14/2018 Appointment: April Jha WPtel: [facility] [place] (15 min) Moderate 06/14/2018 Patient Education: Patient Medication Summary Completed 06/14/2018 Patient Education: Back Pain Completed 06/14/2018 Appointment: April Jha WPtel: [address] [place], [place] [phone] [place] (30 min) Complex 06/11/2018 Appointment: April Jha WPtel: [address] [place], [place] [phone] [place] (30 min) Complex 06/10/2018 Care Plan: Referral Order SNOMED-CT : 534608932 Pending 02/15/2018 Care Plan: CT ABD & PELV W/CONTRAST LOINC : 25386-8 Pending 02/15/2018 Visit Plan: RUQ pain, generalized abdominal pain - will order CT and refer or treat as indicated. Constipation - uncontrolled - I have discussed with the patient the need for adequate fiber and water intake to faci litate soft, easily passed stools. The pt noted understanding of our conversation. I have given the patient a recipe for "power pudding" - equal parts, bran flakes, prune juice, and apple sauce. The pt is to call if symptoms not improved on this regimen. 02/12/2018 Appointment: April Jha WPtel: [address] [place], [place] [phone] [place] (15 min) Moderate 02/12/2018 Patient Education: Patient Medication Summary Completed 02/12/2018 Appointment: Lab Draw 09/14/2017 Patient Education: Patient Medication Summary Completed 09/14/2017 Visit Plan: Low back pain/muscle spasm - the patient was instructed in appropriate posture, need for weight loss to alleviate abdominal obesity that is worsening the patient's back pain.. The pt is to use prn antii nflammatories to manage acute pain. The patient is to call the office if the pain is worsening or does not improve. fatigue, malaise - will check labs and treat as indicated - pt is to notify clinic if symptoms do not improve, if they worsen, or with any changes, questions, or concerns. 04/22/2017 App[facility]ment[facility] [phone] [facility] (30 min) Complex 04/22/2017 Patient Education: Patient Medication Summary Completed 04/22/2017 Visit Plan: RUQ pain-UA negative-recommend low fat diet-start prilosec 20mg daily-call if symptoms uncontrolled or new symptoms develop. Check labs today in the office. 12/25/2015 Appointment: [facility] [phone] [phone] New Patient 12/25/2015 Patient Education: Patient Medication Summary Completed 12/25/2015 Referral: External, Ordering Provider pt will be called with appt date and time Initiated Referral: External, Ordering Provider Referral Initiated Instructions Comment . Cellulitis - Dr. Melvin in to evaluate pt - will change abx and send for IV dose of abx - continue with oral antibiotics as previously directed, return to clinic as previously directed, call for acute change in symptoms, worsening redness, warmth, discharge. . Cellulitis - Dr. Melvin in to evaluate pt - will change abx and send for IV dose of abx - continue with oral antibiotics as previously directed, return to clinic as previously directed, call for acute change in symptoms, worsening redness, warmth, discharge. ADDENDUM: Doctor's eval of the patient - I, Dr. Melvin, personally evaluated the patient with the nurse practitioner. I have reviewed the patient's chart, I have reviewed the patient's past medical history, problem list, medication list, and personal history. I agree with the documentation by the nurse practitioner in the HPI, physical exam, and the assessment and plan. . Low back pain/muscle spasm - the patient was instructed in appropriate posture, need for weight loss to alleviate abdominal obesity that is worsening the patient's back pain.. The pt is to use prn antiinflammatories to manage acute pain. The patient is to call the office if the pain is worsening or does not improve. fatigue, malaise - will check labs and treat as indicated - pt is to notify clinic if symptoms do not improve, if they worsen, or with any changes, questions, or concerns. . muscle spasms, back pain- the patient was instructed in appropriate posture. The pt is to use prn antiinflammatories to manage acute pain. The patient is to call the office if the pain is worsening or does not improve. Keep appointments with GI specialist - notify clinic with any changes in the current treatment plan . RUQ pain, generalized abdominal pain - will order CT and refer or treat as indicated. Constipation - uncontrolled - I have discussed with the patient the need for adequate fiber and water intake to facilitate soft, easily passed stools. The pt noted understanding of our conversation. I have given the patient a recipe for "power pudding" - equal parts, bran flakes, prune juice, and apple sauce. The pt is to call if symptoms not improved on this regimen. RECOMMEND PRILOSEC OTC LOW FAT, LOW SPICE DIET RECOMMEND SCREENING COLONOSCOPY . RUQ pain-UA negative-recommend low fat diet-start prilosec 20mg daily-call if symptoms uncontrolled or new symptoms develop. Check labs today in the office.
--- OUTSIDE RECORDS SUMMARY | 2018-11-09 16:56 | XMS REPORT | CCD ---
Author Author Joanna Vickers MD, [facility] Address [address] [place] [address] Phone Care Team Providers Care Triage Register Nurse Name Role Phone PP Unavailable CCM Unavailable Summary Purpose Interface Exchange Insurance Providers Payer name Policy type / Coverage type Covered republican ID Effective Begin Date Effective End Date Blue Cross [facility] Blue Cross/[facility] [id number] Unknown Family history Mother Diagnosis Age At Onset Hyperlipidemia Unknown Social History Social History Element Codes Description Effective Dates Marital status Unknown Hardy 12/25/2015 Number of children Unknown 2 12/25/[address]: 8798257 Quit over 10 years ago 1992 12/25/[address]: 819340 Currently drinks alcohol 12/25/2015 Frequency of drinks SNOMED CT: 264521798 1- 4 drinks per week 12/25/2015 Allergies, [...] Instructions doxycycline hyclate 100 mg capsule RxNorm: 2335651 1 Capsule(s) PO BID 11/08/2018 11/17/2018 Active cyclobenzaprine 5 mg tablet RxNorm: 116294 1-2 Tablet(s) PO TID as needed 06/14/2018 06/18/2018 Inactive naproxen 500 mg tablet RxNorm: 158894 1 Tablet(s) PO BID 06/14/2018 06/18/2018 Inactive pantoprazole 40 mg tablet,delayed release RxNorm: 310734 1 Tablet(s) PO daily 06/01/2018 06/30/2018 Inactive tramadol 50 mg tablet RxNorm: 549557 1 Tablet(s) PO Q6 as needed 06/01/2018 No Stop Date Active tramadol 50 mg tablet RxNorm: 600361 1 Tablet(s) PO Q6 as needed 05/11/2018 05/31/2018 Inactive tramadol 50 mg tablet RxNorm: 220071 1 Tablet(s) PO Q6 as needed 04/21/2018 05/10/2018 Inactive tramadol 50 mg tablet RxNorm: 905472 1 Tablet(s) PO Q6 as needed 04/02/2018 04/20/2018 Inactive tramadol 50 mg tablet RxNorm: 678700 1 Tablet(s) PO Q6 as needed 03/18/2018 04/01/2018 Inactive pantoprazole 40 mg tablet,delayed release RxNorm: 720020 1 Tablet(s) PO daily 02/26/2018 02/25/2018 Inactive pantoprazole 40 mg tablet,delayed release RxNorm: 838184 1 Tablet(s) PO daily 02/26/2018 03/27/2018 Inactive tramadol 50 mg tablet RxNorm: 815950 1 Tablet(s) PO Q6 as needed 02/26/2018 03/17/2018 Inactive Keflex 500 mg capsule RxNorm: 095351 1 Capsule(s) PO TID 09/14/2017 09/20/2017 Inactive Keflex 500 mg capsule RxNorm: 088090 1 Capsule(s) PO TID 09/14/2017 09/13/2017 Inactive cyclobenzaprine 5 mg tablet RxNorm: 360233 1-2 Tablet(s) PO TID as needed 04/22/2017 04/26/2017 Inactive tramadol 50 mg tablet RxNorm: 828211 Tablet(s) PO Q6 as needed 12/25/2015 02/25/2018 Inactive Vitamin B & C oral RxNorm: 458849 oral No Start Date Active Multiple Vitamin oral RxNorm: 17455 oral No Start Date Active tramadol 50 mg tablet RxNorm: 177695 Tablet(s) PO as needed No Start Date [...] aerobic growth sent to ref lab 09/15/2017 [place] Spotted Fever Igg/Igm 064334 [place] SPOTTED FEVER IGM EIA . 04/30/2017 [place] Spotted Fever Igg/Igm 017253 RMSF, IGM 0.17 index 04/30/2017 [place] Spotted Fever Igg/Igm 316929 BRANDIE MT SPOTTED FEVER IGG EIA FLEX . 04/30/2017 [place] Spotted Fever Igg/Igm 040869 RMSF, IGG SCREEN-FLEX Negative 04/30/2017 Ehrlichia Chaffeensis Antibody Igm 887556 EHRLICHIA CHAFFEENSIS IGM < 1:16 04/29/2017 Ehrlichia Chaffeensis Antibody Igg 009706 EHRLICHIA CHAFFEENSIS IGG <1:64 04/29/2017 [place] Disease Total Antibodies With Western Blot Reflex [id number] B. BURGDORFERI, IGG/IGM 0.31 04/24/2017 [place]ymes Disease Total Antibodies With Western Blot Reflex [id number] 04/24/2017 Tsh Ord6 hTSH II 2.10 uIU/mL [...] 30.0 pg 04/22/2017 Cbc With Differential Ord2 [place]% 6.9 % 04/22/2017 Cbc With Differential Ord2 [...] 2.35 K/ul 04/22/2017 Cbc With Differential Ord2 [place] ABS# 0.5 K/ul 04/22/2017 Cbc With Differential Ord2 Eos ABS# 0.2 K/ul 04/22/2017 Cbc With Differential Ord2 Baso ABS# 0.0 K/ul 04/22/2017 Comp Metabolic Cil327 NA 138 mEq/L 04/22/2017 Comp Metabolic Jar283 K 4.5 mEq/L 04/22/2017 Comp Metabolic Hco010 CL 102 mEq/L 04/22/2017 Comp Metabolic Hmj122 CO2 26.0 mEq/L 04/22/2017 Comp Metabolic Ltw538 ANION GAP 15 04/22/2017 Comp Metabolic Kqm854 GLUCOSE 87 mg/dL 04/22/2017 Comp Metabolic Ruc078 Creat 1.0 mg/dL 04/22/2017 Comp Metabolic Fee550 eGFR 62 ml/min/1.73m2 04/22/2017 Comp Metabolic Aqr307 BUN 15 mg/dL 04/22/2017 Comp Metabolic Cyn760 B/C Ratio 15.3 Ratio 04/22/2017 Comp Metabolic Qvh269 CALCIUM 9.5 mg/dL 04/22/2017 Comp Metabolic Yua684 ALK PHOS 39 U/L 04/22/2017 Comp Metabolic Arr387 AST(SGOT) 18 U/L 04/22/2017 Comp Metabolic Zav530 ALT(SGPT) 16 U/L 04/22/2017 Comp Metabolic Bho137 BILI T 0.4 mg/dL 04/22/2017 Comp Metabolic See320 ALBUMIN 4.8 g/dL 04/22/2017 Comp Metabolic Kiw312 TPRO 7.1 g/dL 04/22/2017 Comp Metabolic Wlt717 GLOB 2.3 g/dL 04/22/2017 Comp Metabolic Mct552 A/G Ratio 2.1 Ratio 04/22/2017 Comp Metabolic Swq215 Osmo 276 mOsmo 04/22/2017 Sed Rate Ord21 ESR 1 mm/hr 04/22/2017 Comp Metabolic Dgq949 NA 137 mEq/L 12/25/2015 Comp Metabolic Ofa629 K 4.2 mEq/L 12/25/2015 Comp Metabolic Smf198 CL 105 mEq/L 12/25/2015 Comp Metabolic Mqy955 CO2 26.0 mEq/L 12/25/2015 Comp Metabolic Wfr995 ANION GAP 10 12/25/2015 Comp Metabolic Yht335 GLUCOSE 92 mg/dL 12/25/2015 Comp Metabolic Vll795 Creat 1.0 mg/dL 12/25/2015 Comp Metabolic Ctv660 eGFR 62 ml/min/1.73m2 12/25/2015 Comp Metabolic Eam593 BUN 15 mg/dL 12/25/2015 Comp Metabolic Oma616 B/C Ratio 15.2 Ratio 12/25/2015 Comp Metabolic Vuk085 CALCIUM 9.6 mg/dL 12/25/2015 Comp Metabolic Scp028 ALK PHOS 30 U/L 12/25/2015 Comp Metabolic Kms313 AST(SGOT) 17 U/L 12/25/2015 Comp Metabolic Ltz142 ALT(SGPT) 16 U/L 12/25/2015 Comp Metabolic Uos764 BILI T 0.6 mg/dL 12/25/2015 Comp Metabolic Gay997 ALBUMIN 4.7 g/dL 12/25/2015 Comp Metabolic Noz345 TPRO 7.0 g/dL 12/25/2015 Comp Metabolic Bab819 GLOB 2.3 g/dL 12/25/2015 Comp Metabolic Moi589 A/G Ratio 2.0 Ratio 12/25/2015 Comp Metabolic Htq403 Osmo 274 mOsmo 12/25/2015 Amylase Ord34 AMYLASE [...] 30.3 pg 12/25/2015 Cbc With Differential Ord2 [place]% 8.0 % 12/25/2015 Cbc With Differential Ord2 [...] 1.56 K/ul 12/25/2015 Cbc With Differential Ord2 [place] ABS# 0.4 K/ul 12/25/2015 Cbc With Differential [...] Codes Date URINALYSIS NONAUTO W/O SCOPE CPT-4: 71018 09/14/2017 URINALYSIS NONAUTO W/O SCOPE CPT-4: 19265 12/25/2015 Vital Signs Date Vital 11/08/2018 Blood Pressure 1: 94/60 Code: 8480-6 BMI: 25.7 Code: 26929- 5 Heart Rate 1: 72 bpm Height: 5'6" SpO2: 96% Weight: 159 lbs 06/14/2018 Blood Pressure 1: 110/68 Code: 8480-6 BMI: 26.0 Code: 81882-3 Heart Rate 1: 73 bpm Height: 5'6" SpO2: 97% Weight: 161 lbs 02/12/2018 Blood Pressure 1: 104/60 Code: 8480-6 BMI: 26.1 Code: 71831-4 Heart Rate 1: 71 bpm Height: 5'6" SpO2: 95% Weight: 162 lbs 04/22/2017 Blood Pressure 1: 118/68 Code: 8480-6 Heart Rate 1: 72 bpm Height: SpO2: 98% Weight: 12/25/2015 Blood Pressure 1: 120/70 Code: 8480-6 BMI: 25.0 Code: 08770-6 Heart Rate 1: 82 bpm Height: 5'6" [...] limb[ICD10: L03.114] [facility] CPT-4: 93942 11/08/2018 33065 EST. PATIENT, LEVEL III Diagnosis: Low back pain[ICD10: M54.5] Diagnosis: Muscle spasm of back[ICD10: M62.830] [facility] CPT- 4: 31646 06/14/2018 35659 EST. PATIENT, LEVEL IV Diagnosis: Right upper quadrant pain[ICD10: R10.11] Diagnosis: Generalized abdominal pain[ICD10: R10.84] Diagnosis: Slow transit constipation[ICD10: K59.01] [facility] CPT-4: 10502 02/12/2018 41546 EST. PATIENT, LEVEL IV Diagnosis: Other fatigue[ICD10: R53.83] Diagnosis: Other malaise[ICD10: R53.81] Diagnosis: Low back pain[ICD10: M54.5] Diagnosis: Muscle spasm of back[ICD10: M62.830] April Melvin MD, [facility] CPT- 4: 17235 04/22/2017 ([id number]) OFFICE VISIT, NEW - LEVEL 3 Diagnosis: Right upper quadrant pain[ICD10: R10.11] Joanna Melvin MD, [facility] CPT-4: 71018 12/25/2015 Plan of Care Planned Activity Notes [...] plan 06/14/2018 Appointment: April Jha WPtel: [facility] [place] (15 min) Moderate 06/14/2018 Patient Education: Patient Medication Summary Completed 06/14/2018 Patient Education: Back Pain Completed 06/14/2018 Appointment: April Jha WPtel: [address] [place], [place] [phone] [place] (30 min) Complex 06/11/2018 Appointment: April Jha WPtel: [address] [place], [place] [phone] [place] (30 min) Complex 06/10/2018 Care Plan: Referral Order SNOMED-CT : [id number] Pending 02/15/2018 Care Plan: CT ABD & PELV W/CONTRAST LOINC : 06474-2 Pending 02/15/2018 Visit Plan: RUQ pain, generalized [...] this regimen. 02/12/2018 Appointment: April Jha WPtel: [address] [place], [place] [phone] [place] (15 min) Moderate 02/12/2018 Patient Education: [...] or concerns. 04/22/2017 App[facility]ment: [facility]ije[facility] [phone] [phone] ([facility]) Complex 04/22/2017 Patient Education: Patient Medication Summary Completed 04/22/2017 Visit Plan: RUQ pain-UA negative-recommend low fat diet-start prilosec 20mg daily-call if symptoms uncontrolled or new symptoms develop. Check labs today in the office. 12/25/2015 Appointment: [facility] [phone] [phone] New Patient 12/25/2015 Patient Education: Patient [...]
--- OUTSIDE RECORDS SUMMARY | 2018-11-09 16:57 | XMS REPORT | CCD ---
Author Author Joanna Vickers MD, [facility] Address [address] [place] [address] Phone Care Team Providers Care Implement Mechanic Name Role Phone PP Unavailable CCM Unavailable Summary Purpose Interface Exchange Insurance Providers Payer name Policy type / Coverage type Covered republican ID Effective Begin Date Effective End Date Blue Cross Blue [facility] Blue Cross/[facility] [id number] Unknown Family history Mother Diagnosis Age At Onset Hyperlipidemia Unknown Social History Social History Element Codes Description Effective Dates Marital status Unknown Hardy 12/25/2015 Number of children Unknown 2 12/25/[address]: 1966751 Quit over 10 years ago 1992 12/25/[address]: 143467 Currently drinks alcohol 12/25/2015 Frequency of drinks SNOMED CT: 928544526 1- 4 drinks per week 12/25/2015 Allergies, [...] Instructions doxycycline hyclate 100 mg capsule RxNorm: 1507481 1 Capsule(s) PO BID 11/08/2018 11/17/2018 Active cyclobenzaprine 5 mg tablet RxNorm: 387361 1-2 Tablet(s) PO TID as needed 06/14/2018 06/18/2018 Inactive naproxen 500 mg tablet RxNorm: 611077 1 Tablet(s) PO BID 06/14/2018 06/18/2018 Inactive pantoprazole 40 mg tablet,delayed release RxNorm: 246185 1 Tablet(s) PO daily 06/01/2018 06/30/2018 Inactive tramadol 50 mg tablet RxNorm: 682776 1 Tablet(s) PO Q6 as needed 06/01/2018 No Stop Date Active tramadol 50 mg tablet RxNorm: 713858 1 Tablet(s) PO Q6 as needed 05/11/2018 05/31/2018 Inactive tramadol 50 mg tablet RxNorm: 695953 1 Tablet(s) PO Q6 as needed 04/21/2018 05/10/2018 Inactive tramadol 50 mg tablet RxNorm: 546789 1 Tablet(s) PO Q6 as needed 04/02/2018 04/20/2018 Inactive tramadol 50 mg tablet RxNorm: 331026 1 Tablet(s) PO Q6 as needed 03/18/2018 04/01/2018 Inactive pantoprazole 40 mg tablet,delayed release RxNorm: 515472 1 Tablet(s) PO daily 02/26/2018 02/25/2018 Inactive pantoprazole 40 mg tablet,delayed release RxNorm: 330566 1 Tablet(s) PO daily 02/26/2018 03/27/2018 Inactive tramadol 50 mg tablet RxNorm: 000773 1 Tablet(s) PO Q6 as needed 02/26/2018 03/17/2018 Inactive Keflex 500 mg capsule RxNorm: 369901 1 Capsule(s) PO TID 09/14/2017 09/20/2017 Inactive Keflex 500 mg capsule RxNorm: 359092 1 Capsule(s) PO TID 09/14/2017 09/13/2017 Inactive cyclobenzaprine 5 mg tablet RxNorm: 823810 1-2 Tablet(s) PO TID as needed 04/22/2017 04/26/2017 Inactive tramadol 50 mg tablet RxNorm: 215692 Tablet(s) PO Q6 as needed 12/25/2015 02/25/2018 Inactive Vitamin B & C oral RxNorm: 602768 oral No Start Date Active Multiple Vitamin oral RxNorm: 75167 oral No Start Date Active tramadol 50 mg tablet RxNorm: 923082 Tablet(s) PO as needed No Start Date [...] aerobic growth sent to ref lab 09/15/2017 [place] Spotted Fever Igg/Igm 151719 [place]IE [place] SPOTTED FEVER IGM EIA . 04/30/2017 [place] Spotted Fever Igg/Igm 701853 RMSF, IGM 0.17 index 04/30/2017 [place] Spotted Fever Igg/Igm 328082 BR[place]IE MT SPOTTED FEVER IGG EIA FLEX . 04/30/2017 [place] Spotted Fever Igg/Igm 926874 RMSF, IGG SCREEN-FLEX Negative 04/30/2017 Ehrlichia Chaffeensis Antibody Igm 723760 EHRLICHIA CHAFFEENSIS IGM < 1:16 04/29/2017 Ehrlichia Chaffeensis Antibody Igg 873962 EHRLICHIA CHAFFEENSIS IGG <1:64 04/29/2017 Lymes Disease Total Antibodies With Western Blot Reflex [id number] B. BURGDORFERI, IGG/IGM 0.31 04/24/2017 Lymes Disease Total Antibodies With Western Blot Reflex [id number] 04/24/2017 Tsh Ord6 hTSH II 2.10 uIU/mL [...] 30.0 pg 04/22/2017 Cbc With Differential Ord2 [place]% 6.9 % 04/22/2017 Cbc With Differential Ord2 [...] 2.35 K/ul 04/22/2017 Cbc With Differential Ord2 [place] ABS# 0.5 K/ul 04/22/2017 Cbc With Differential Ord2 Eos ABS# 0.2 K/ul 04/22/2017 Cbc With Differential Ord2 Baso ABS# 0.0 K/ul 04/22/2017 Comp Metabolic Zxj579 NA 138 mEq/L 04/22/2017 Comp Metabolic Kgd764 K 4.5 mEq/L 04/22/2017 Comp Metabolic Ohq143 CL 102 mEq/L 04/22/2017 Comp Metabolic Jxs049 CO2 26.0 mEq/L 04/22/2017 Comp Metabolic Kfo044 ANION GAP 15 04/22/2017 Comp Metabolic Alg164 GLUCOSE 87 mg/dL 04/22/2017 Comp Metabolic Est608 Creat 1.0 mg/dL 04/22/2017 Comp Metabolic Hhh764 eGFR 62 ml/min/1.73m2 04/22/2017 Comp Metabolic Pqa867 BUN 15 mg/dL 04/22/2017 Comp Metabolic Xxj884 B/C Ratio 15.3 Ratio 04/22/2017 Comp Metabolic Bwo564 CALCIUM 9.5 mg/dL 04/22/2017 Comp Metabolic Iwv790 ALK PHOS 39 U/L 04/22/2017 Comp Metabolic Ipl182 AST(SGOT) 18 U/L 04/22/2017 Comp Metabolic Gub838 ALT(SGPT) 16 U/L 04/22/2017 Comp Metabolic Uvp606 BILI T 0.4 mg/dL 04/22/2017 Comp Metabolic Jxh621 ALBUMIN 4.8 g/dL 04/22/2017 Comp Metabolic Jzn824 TPRO 7.1 g/dL 04/22/2017 Comp Metabolic Kwa771 GLOB 2.3 g/dL 04/22/2017 Comp Metabolic Mkr169 A/G Ratio 2.1 Ratio 04/22/2017 Comp Metabolic Hnb907 Osmo 276 mOsmo 04/22/2017 Sed Rate Ord21 ESR 1 mm/hr 04/22/2017 Comp Metabolic Sjq824 NA 137 mEq/L 12/25/2015 Comp Metabolic Lyb564 K 4.2 mEq/L 12/25/2015 Comp Metabolic Nwp356 CL 105 mEq/L 12/25/2015 Comp Metabolic Wjy390 CO2 26.0 mEq/L 12/25/2015 Comp Metabolic Rhx168 ANION GAP 10 12/25/2015 Comp Metabolic Vit845 GLUCOSE 92 mg/dL 12/25/2015 Comp Metabolic Qie717 Creat 1.0 mg/dL 12/25/2015 Comp Metabolic Hnh648 eGFR 62 ml/min/1.73m2 12/25/2015 Comp Metabolic Jfi793 BUN 15 mg/dL 12/25/2015 Comp Metabolic Xzz067 B/C Ratio 15.2 Ratio 12/25/2015 Comp Metabolic Hdi421 CALCIUM 9.6 mg/dL 12/25/2015 Comp Metabolic Hrw074 ALK PHOS 30 U/L 12/25/2015 Comp Metabolic Pfd827 AST(SGOT) 17 U/L 12/25/2015 Comp Metabolic Aad464 ALT(SGPT) 16 U/L 12/25/2015 Comp Metabolic Kpb801 BILI T 0.6 mg/dL 12/25/2015 Comp Metabolic Cui682 ALBUMIN 4.7 g/dL 12/25/2015 Comp Metabolic Gqo475 TPRO 7.0 g/dL 12/25/2015 Comp Metabolic Owq789 GLOB 2.3 g/dL 12/25/2015 Comp Metabolic Tys413 A/G Ratio 2.0 Ratio 12/25/2015 Comp Metabolic Rss189 Osmo 274 mOsmo 12/25/2015 Amylase Ord34 AMYLASE [...] 30.3 pg 12/25/2015 Cbc With Differential Ord2 [place]% 8.0 % 12/25/2015 Cbc With Differential Ord2 [...] 1.56 K/ul 12/25/2015 Cbc With Differential Ord2 [place] ABS# 0.4 K/ul 12/25/2015 Cbc With Differential [...] Codes Date URINALYSIS NONAUTO W/O SCOPE CPT-4: 10542 09/14/2017 URINALYSIS NONAUTO W/O SCOPE CPT-4: 58278 12/25/2015 Vital Signs Date Vital 11/08/2018 Blood Pressure 1: 94/60 Code: 8480-6 BMI: 25.7 Code: 36537- 5 Heart Rate 1: 72 bpm Height: 5'6" SpO2: 96% Weight: 159 lbs 06/14/2018 Blood Pressure 1: 110/68 Code: 8480-6 BMI: 26.0 Code: 78454-2 Heart Rate 1: 73 bpm Height: 5'6" SpO2: 97% Weight: 161 lbs 02/12/2018 Blood Pressure 1: 104/60 Code: 8480-6 BMI: 26.1 Code: 55034-7 Heart Rate 1: 71 bpm Height: 5'6" SpO2: 95% Weight: 162 lbs 04/22/2017 Blood Pressure 1: 118/68 Code: 8480-6 Heart Rate 1: 72 bpm Height: SpO2: 98% Weight: 12/25/2015 Blood Pressure 1: 120/70 Code: 8480-6 BMI: 25.0 Code: 89451-4 Heart Rate 1: 82 bpm Height: 5'6" [...] Diagnosis: Cellulitis of left upper limb[ICD10: L03.114] [facility] CPT-4: 82992 11/08/2018 02702 EST. PATIENT, LEVEL III Diagnosis: Low back pain[ICD10: M54.5] Diagnosis: Muscle spasm of back[ICD10: M62.830] [facility] CPT- 4: 71451 06/14/2018 95158 EST. PATIENT, LEVEL IV Diagnosis: Right upper quadrant pain[ICD10: R10.11] Diagnosis: Generalized abdominal pain[ICD10: R10.84] Diagnosis: Slow transit constipation[ICD10: K59.01] [facility] CPT-4: 97464 02/12/2018 76870 EST. PATIENT, LEVEL IV Diagnosis: Other fatigue[ICD10: R53.83] Diagnosis: Other malaise[ICD10: R53.81] Diagnosis: Low back pain[ICD10: M54.5] Diagnosis: Muscle spasm of back[ICD10: M62.830] April Melvin MD, [facility] CPT- 4: 85028 04/22/2017 ([id number]) OFFICE VISIT, NEW - LEVEL 3 Diagnosis: Right upper quadrant pain[ICD10: R10.11] Joanna Melvin MD, [facility] CPT-4: 40233 12/25/2015 Plan of Care Planned Activity Notes Codes Status Date Visit Plan: Cellulitis - Dr. Melvin in to evaluate pt - will change abx and send for IV dose of abx - continue with oral antibiotics as previously directed, return to clinic as previously directed, call for acute change in symptoms, worsening redness, warmth, discharge. 11/08/2018 Patient Education: Patient Medication Summary Completed [...] treatment plan 06/14/2018 Appointment: [facility] [place] (15 min) Moderate 06/14/2018 Patient Education: Patient Medication Summary Completed 06/14/2018 Patient Education: Back Pain Completed 06/14/2018 Appointment: April Jha [facility] [place] (30 min) Complex 06/11/2018 Appointment: April [facility]ha [facility]el[facility] [place] (30 min) Complex 06/10/2018 Care Plan: Referral Order SNOMED-CT : 667991781 Pending 02/15/2018 Care Plan: CT ABD & PELV W/CONTRAST LOINC : 98422-9 Pending 02/15/2018 Visit Plan: RUQ pain, generalized [...] this regimen. 02/12/2018 Appointment: April Jha WPtel: [facility] [place] (15 min) Moderate 02/12/2018 Patient Education: [...] any changes, questions, or concerns. 04/22/2017 Appointment: [facility]ha [facility] [place] (30 min) Complex 04/22/2017 Patient Education: Patient Medication Summary Completed 04/22/2017 Visit Plan: RUQ pain-UA negative-recommend low fat diet-start prilosec 20mg daily-call if symptoms uncontrolled or new symptoms develop. Check labs today in the office. 12/25/2015 Appointment: Joanna Vickers WPtel: [phone] New Patient 12/25/2015 Patient Education: Patient Medication [...] in symptoms, worsening redness, warmth, discharge. . Low back pain/muscle spasm - the [...]
--- OUTSIDE RECORDS SUMMARY | 2018-11-09 16:58 | XMS REPORT | CCD ---
Author Author Joanna Vickers MD, [facility] Address [address] [place] [address] Phone Care Team Providers Care Ginger Farmer Name Role Phone PP Unavailable CCM Unavailable Summary Purpose Interface Exchange Insurance Providers Payer name Policy type / Coverage type Covered libertarian ID Effective Begin Date Effective End Date Blue Cross Blue [facility] Cross/[facility] [id number] Unknown Family history Mother Diagnosis Age At Onset Hyperlipidemia Unknown Social History Social History Element Codes Description Effective Dates Marital status Unknown Hardy 12/25/2015 Number of children Unknown 2 12/25/[address]: 4410298 Quit over 10 years ago 1992 12/25/[address]: 079583 Currently drinks alcohol 12/25/2015 Frequency of drinks SNOMED CT: 412827437 1- 4 drinks per week 12/25/2015 Allergies, Adverse Reactions, Alerts Substance Reaction Codes Entered Date Inactivated Date Status * NO KNOWN DRUG ALLERGIES Unknown 12/25/2015 No Inactive Date Active Past Medical History Illness Codes Condition Status Onset Date Resolved Date Low back pain ICD-9: 724.2 ICD-10: M54.5 [...] Problems Condition Codes Effective Dates Condition Status Low back pain ICD-9: 724.2 ICD-10: M54.5 [...] Start Date Stop Date Status Fill Instructions cyclobenzaprine 5 mg tablet RxNorm: 048601 1-2 Tablet(s) PO TID as needed 06/14/2018 06/18/2018 Inactive naproxen 500 mg tablet RxNorm: 533095 1 Tablet(s) PO BID 06/14/2018 06/18/2018 Inactive pantoprazole 40 mg tablet,delayed release RxNorm: 101198 1 Tablet(s) PO daily 06/01/2018 06/30/2018 Inactive tramadol 50 mg tablet RxNorm: 358133 1 Tablet(s) PO Q6 as needed 06/01/2018 No Stop Date Active tramadol 50 mg tablet RxNorm: 423828 1 Tablet(s) PO Q6 as needed 05/11/2018 05/31/2018 Inactive tramadol 50 mg tablet RxNorm: 176587 1 Tablet(s) PO Q6 as needed 04/21/2018 05/10/2018 Inactive tramadol 50 mg tablet RxNorm: 277875 1 Tablet(s) PO Q6 as needed 04/02/2018 04/20/2018 Inactive tramadol 50 mg tablet RxNorm: 146588 1 Tablet(s) PO Q6 as needed 03/18/2018 04/01/2018 Inactive pantoprazole 40 mg tablet,delayed release RxNorm: 939364 1 Tablet(s) PO daily 02/26/2018 02/25/2018 Inactive pantoprazole 40 mg tablet,delayed release RxNorm: 772153 1 Tablet(s) PO daily 02/26/2018 03/27/2018 Inactive tramadol 50 mg tablet RxNorm: 782655 1 Tablet(s) PO Q6 as needed 02/26/2018 03/17/2018 Inactive Keflex 500 mg capsule RxNorm: 287870 1 Capsule(s) PO TID 09/14/2017 09/20/2017 Inactive Keflex 500 mg capsule RxNorm: 734607 1 Capsule(s) PO TID 09/14/2017 09/13/2017 Inactive cyclobenzaprine 5 mg tablet RxNorm: 875874 1-2 Tablet(s) PO TID as needed 04/22/2017 04/26/2017 Inactive tramadol 50 mg tablet RxNorm: 538857 Tablet(s) PO Q6 as needed 12/25/2015 02/25/2018 Inactive Vitamin B & C oral RxNorm: 304905 oral No Start Date Active Multiple Vitamin oral RxNorm: 76123 oral No Start Date Active tramadol 50 mg tablet RxNorm: 621250 Tablet(s) PO as needed No Start Date 12/24/2015 Inactive Medication Administered No Medication Administered data Immunizations No Immunization data Assessments Condition Codes Effective Dates Low back pain ICD-10: M54.5 ICD-9: 724.2 [...] Visit Reason For Visit Effective Dates Notes back pain 06/14/2018 abdominal pain 02/12/2018 back pain 04/22/2017 abdominal pain 12/25/2015 Results Observation Observation Code Item Item Code Result Date Urine Culture Ucult Complete >100,000 col/ml aerobic growth sent to ref lab 09/15/2017 [place] Spotted Fever Igg/Igm 053337 BRANDIE MT SPOTTED FEVER IGM EIA . 04/30/2017 [place] Spotted Fever Igg/Igm 483832 RMSF, IGM 0.17 index 04/30/2017 [place] Spotted Fever Igg/Igm 835707 BRANDIE MT SPOTTED FEVER IGG EIA FLEX . 04/30/2017 [place] Spotted Fever Igg/Igm 410079 RMSF, IGG SCREEN-FLEX Negative 04/30/2017 Ehrlichia Chaffeensis Antibody Igm 613567 EHRLICHIA CHAFFEENSIS IGM < 1:16 04/29/2017 Ehrlichia Chaffeensis Antibody Igg 087293 EHRLICHIA CHAFFEENSIS IGG <1:64 04/29/2017 Lymes Disease Total Antibodies With Western Blot Reflex [id number] B. BURGDORFERI, IGG/IGM 0.31 04/24/2017 Lymes Disease Total Antibodies With Western Blot Reflex [id number] 04/24/2017 Tsh Ord6 hTSH II 2.10 uIU/mL [...] 30.0 pg 04/22/2017 Cbc With Differential Ord2 [place]% 6.9 % 04/22/2017 Cbc With Differential Ord2 [...] 2.35 K/ul 04/22/2017 Cbc With Differential Ord2 [place] ABS# 0.5 K/ul 04/22/2017 Cbc With Differential Ord2 Eos ABS# 0.2 K/ul 04/22/2017 Cbc With Differential Ord2 Baso ABS# 0.0 K/ul 04/22/2017 Comp Metabolic Msz061 NA 138 mEq/L 04/22/2017 Comp Metabolic Sey601 K 4.5 mEq/L 04/22/2017 Comp Metabolic Mkf489 CL 102 mEq/L 04/22/2017 Comp Metabolic Nbq433 CO2 26.0 mEq/L 04/22/2017 Comp Metabolic Xnz631 ANION GAP 15 04/22/2017 Comp Metabolic Trb395 GLUCOSE 87 mg/dL 04/22/2017 Comp Metabolic Viu805 Creat 1.0 mg/dL 04/22/2017 Comp Metabolic Ssy374 eGFR 62 ml/min/1.73m2 04/22/2017 Comp Metabolic Cce319 BUN 15 mg/dL 04/22/2017 Comp Metabolic Mtr838 B/C Ratio 15.3 Ratio 04/22/2017 Comp Metabolic Vek677 CALCIUM 9.5 mg/dL 04/22/2017 Comp Metabolic Zqi712 ALK PHOS 39 U/L 04/22/2017 Comp Metabolic Mzk117 AST(SGOT) 18 U/L 04/22/2017 Comp Metabolic All629 ALT(SGPT) 16 U/L 04/22/2017 Comp Metabolic Onp044 BILI T 0.4 mg/dL 04/22/2017 Comp Metabolic Wgm862 ALBUMIN 4.8 g/dL 04/22/2017 Comp Metabolic Utx179 TPRO 7.1 g/dL 04/22/2017 Comp Metabolic Jyf186 GLOB 2.3 g/dL 04/22/2017 Comp Metabolic Aab424 A/G Ratio 2.1 Ratio 04/22/2017 Comp Metabolic Fwg334 Osmo 276 mOsmo 04/22/2017 Sed Rate Ord21 ESR 1 mm/hr 04/22/2017 Comp Metabolic Gts337 NA 137 mEq/L 12/25/2015 Comp Metabolic Bkr094 K 4.2 mEq/L 12/25/2015 Comp Metabolic Eeq700 CL 105 mEq/L 12/25/2015 Comp Metabolic Off912 CO2 26.0 mEq/L 12/25/2015 Comp Metabolic Fod377 ANION GAP 10 12/25/2015 Comp Metabolic Lwg582 GLUCOSE 92 mg/dL 12/25/2015 Comp Metabolic Lta338 Creat 1.0 mg/dL 12/25/2015 Comp Metabolic Tia956 eGFR 62 ml/min/1.73m2 12/25/2015 Comp Metabolic Okf856 BUN 15 mg/dL 12/25/2015 Comp Metabolic Kgx604 B/C Ratio 15.2 Ratio 12/25/2015 Comp Metabolic Npl787 CALCIUM 9.6 mg/dL 12/25/2015 Comp Metabolic Sgl981 ALK PHOS 30 U/L 12/25/2015 Comp Metabolic Emn211 AST(SGOT) 17 U/L 12/25/2015 Comp Metabolic Zze278 ALT(SGPT) 16 U/L 12/25/2015 Comp Metabolic Jds781 BILI T 0.6 mg/dL 12/25/2015 Comp Metabolic Lce466 ALBUMIN 4.7 g/dL 12/25/2015 Comp Metabolic Xpk377 TPRO 7.0 g/dL 12/25/2015 Comp Metabolic Ujg640 GLOB 2.3 g/dL 12/25/2015 Comp Metabolic Itn016 A/G Ratio 2.0 Ratio 12/25/2015 Comp Metabolic Daw902 Osmo 274 mOsmo 12/25/2015 Amylase Ord34 AMYLASE [...] 30.3 pg 12/25/2015 Cbc With Differential Ord2 [place]% 8.0 % 12/25/2015 Cbc With Differential Ord2 [...] 1.56 K/ul 12/25/2015 Cbc With Differential Ord2 [place] ABS# 0.4 K/ul 12/25/2015 Cbc With Differential Ord2 Eos ABS# 0.2 K/ul 12/25/2015 Cbc With Differential Ord2 Baso ABS# 0.0 K/ul 12/25/2015 Tsh Ord6 hTSH II 0.99 uIU/mL 12/25/2015 Review of Systems System Result Effective Dates Constitutional No recent illness 06/14/2018 Constitutional No [...] Result Effective Dates Notes Full Exam - Orthopedics Constitutional general appearance [...] Codes Date URINALYSIS NONAUTO W/O SCOPE CPT-4: 02959 09/14/2017 URINALYSIS NONAUTO W/O SCOPE CPT-4: 79047 12/25/2015 Vital Signs Date Vital 06/14/2018 Blood Pressure 1: 110/68 Code: 8480-6 BMI: 26.0 Code: 61627-5 Heart Rate 1: 73 bpm Height: 5'6" SpO2: 97% Weight: 161 lbs 02/12/2018 Blood Pressure 1: 104/60 Code: 8480-6 BMI: 26.1 Code: 97681-7 Heart Rate 1: 71 bpm Height: 5'6" SpO2: 95% Weight: 162 lbs 04/22/2017 Blood Pressure 1: 118/68 Code: 8480-6 Heart Rate 1: 72 bpm Height: SpO2: 98% Weight: 12/25/2015 Blood Pressure 1: 120/70 Code: 8480-6 BMI: 25.0 Code: 94157-0 Heart Rate 1: 82 bpm Height: 5'6" SpO2: 97% Weight: 155 lbs Functional Status No Functional Status data History of Present Illness Symptom Name Status Result Effective Date Notes Location in the right middle back area [...] data Encounters Encounter Performer Location Codes Date 26340 EST. PATIENT, LEVEL III Diagnosis: Low back pain[ICD10: M54.5] Diagnosis: Muscle spasm of back[ICD10: M62.830] April Melvin MD, [facility] CPT- 4: 22549 06/14/2018 32136 EST. PATIENT, LEVEL IV Diagnosis: Right upper quadrant pain[ICD10: R10.11] Diagnosis: Generalized abdominal pain[ICD10: R10.84] Diagnosis: Slow transit constipation[ICD10: K59.01] April Melvin MD, [facility] CPT-4: 89617 02/12/2018 51827 EST. PATIENT, LEVEL IV Diagnosis: Other fatigue[ICD10: R53.83] Diagnosis: Other malaise[ICD10: R53.81] Diagnosis: Low back pain[ICD10: M54.5] Diagnosis: Muscle spasm of back[ICD10: M62.830] [facility] CPT- 4: 01883 04/22/2017 ([id number]) OFFICE VISIT, NEW - LEVEL 3 Diagnosis: Right upper quadrant pain[ICD10: R10.11] [facility] CPT-4: 96009 12/25/2015 Plan of Care Planned Activity Notes Codes Status Date Visit Plan: muscle spasms, back pain- the [...] Appointment: April Jha [facility]Ptel[facility] [place] ([facility] Moderate 06/14/2018 Patient Education: Patient Medication Summary Completed 06/14/2018 Patient Education: Back Pain Completed 06/14/2018 Appointment: April Jha WPtel[facility] [place] ([facility]) Complex 06/11/2018 Appointment: April Jha WPtel[facility] [place] ([facility]) Complex 06/10/2018 Care Plan: Referral Order SNOMED-CT : [id number] Pending 02/15/2018 Care Plan: CT ABD & PELV W/CONTRAST LOINC : 91373-7 Pending 02/15/2018 Visit Plan: RUQ pain, generalized [...] this regimen. 02/12/2018 Appointment: April Jha WPtel[facility] [place] (15 min) Moderate 02/12/2018 Patient Education: [...] or concerns. 04/22/2017 Appointment: Abhijeet April [facility] [address] [facility] (30 min) Complex 04/22/2017 Patient Education: Patient Medication Summary Completed 04/22/2017 Visit Plan: RUQ pain-UA negative-recommend low fat diet-start prilosec 20mg daily-call if symptoms uncontrolled or new symptoms develop. Check labs today in the office. 12/25/2015 App[facility]ment: [facility] [address] [facility] New Patient 12/25/2015 Patient Education: Patient Medication Summary Completed 12/25/2015 Referral: External, Ordering Provider pt will be called with appt date and time Initiated Referral: External, Ordering Provider Referral Initiated Instructions Comment . Low back pain/muscle spasm - the [...]
--- OUTSIDE RECORDS SUMMARY | 2018-11-09 16:58 | XMS REPORT | CCD ---
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 Name Role Phone PP Unavailable CCM Unavailable Summary Purpose Interface Exchange Insurance Providers Payer name Policy type / Coverage type Covered alliance party ID Effective Begin Date Effective End Date Blue Cross Blue [facility] Blue Cross/[facility] [id number] Unknown Family history Mother Diagnosis Age At Onset Hyperlipidemia Unknown Social History Social History Element Codes Description Effective Dates Marital status Unknown Hardy 12/25/2015 Number of children Unknown 2 12/25/[address]: 2392292 Quit over 10 years ago 1992 12/25/[address]: 805611 Currently drinks alcohol 12/25/2015 Frequency of drinks SNOMED CT: 308012616 1- 4 drinks per week 12/25/2015 Allergies, Adverse Reactions, Alerts Substance Reaction Codes Entered Date Inactivated Date Status * NO KNOWN DRUG ALLERGIES Unknown 12/25/2015 No Inactive Date Active Past Medical History Illness Codes Condition Status Onset Date Resolved Date Generalized abdominal pain ICD-9: 789.07 ICD-10: R10.84 Active 02/12/2018 Unknown Right upper quadrant pain ICD-9: 789.01 ICD-10: R10.11 Active 12/24/2015 Unknown Slow transit constipation ICD-9: 564.01 ICD-10: K59.01 Active 02/12/2018 Unknown Urinary tract infection, site not specified ICD-9: 599.0 ICD-10: N39.0 Active 09/14/2017 Unknown Low back pain ICD-9: 724.2 ICD-10: M54.5 Active 04/22/2017 Unknown Muscle spasm of back ICD- 9: 724.8 ICD-10: M62.830 Active 04/22/2017 Unknown Other fatigue ICD-9: 780.79 ICD-10: R53.83 Active 04/22/2017 Unknown Other malaise ICD-9: 780.79 ICD-10: R53.81 Active 04/22/2017 Unknown Problems Condition Codes Effective Dates Condition Status Generalized abdominal pain ICD-9: 789.07 ICD-10: R10.84 02/12/2018 Active Right upper quadrant pain ICD-9: 789.01 ICD-10: R10.11 12/24/2015 Active Slow transit constipation ICD-9: 564.01 ICD-10: K59.01 02/12/2018 Active Urinary tract infection, site not specified ICD-9: 599.0 ICD-10: N39.0 09/14/2017 Active Low back pain ICD-9: 724.2 ICD-10: M54.5 04/22/2017 Active Muscle spasm of back ICD- 9: 724.8 ICD-10: M62.830 04/22/2017 Active Other fatigue ICD-9: 780.79 ICD-10: R53.83 04/22/2017 Active Other malaise ICD-9: 780.79 ICD-10: R53.81 04/22/2017 Active Medications Medication Codes Instructions Start Date Stop Date Status Fill Instructions pantoprazole 40 mg tablet,delayed release RxNorm: 325782 1 Tablet(s) PO daily 06/01/2018 06/30/2018 Active tramadol 50 mg tablet RxNorm: 049229 1 Tablet(s) PO Q6 as needed 06/01/2018 No Stop Date Active tramadol 50 mg tablet RxNorm: 966035 1 Tablet(s) PO Q6 as needed 05/11/2018 05/31/2018 Inactive tramadol 50 mg tablet RxNorm: 785723 1 Tablet(s) PO Q6 as needed 04/21/2018 05/10/2018 Inactive tramadol 50 mg tablet RxNorm: 614978 1 Tablet(s) PO Q6 as needed 04/02/2018 04/20/2018 Inactive tramadol 50 mg tablet RxNorm: 003580 1 Tablet(s) PO Q6 as needed 03/18/2018 04/01/2018 Inactive pantoprazole 40 mg tablet,delayed release RxNorm: 705234 1 Tablet(s) PO daily 02/26/2018 02/25/2018 Inactive pantoprazole 40 mg tablet,delayed release RxNorm: 970648 1 Tablet(s) PO daily 02/26/2018 03/27/2018 Inactive tramadol 50 mg tablet RxNorm: 726675 1 Tablet(s) PO Q6 as needed 02/26/2018 03/17/2018 Inactive Keflex 500 mg capsule RxNorm: 960435 1 Capsule(s) PO TID 09/14/2017 09/20/2017 Inactive Keflex 500 mg capsule RxNorm: 477223 1 Capsule(s) PO TID 09/14/2017 09/13/2017 Inactive cyclobenzaprine 5 mg tablet RxNorm: 139325 1-2 Tablet(s) PO TID as needed 04/22/2017 04/26/2017 Inactive tramadol 50 mg tablet RxNorm: 888318 Tablet(s) PO Q6 as needed 12/25/2015 02/25/2018 Inactive Vitamin B & C oral RxNorm: 612643 oral No Start Date Active Multiple Vitamin oral RxNorm: 70773 oral No Start Date Active tramadol 50 mg tablet RxNorm: 982899 Tablet(s) PO as needed No Start Date 12/24/2015 Inactive Medication Administered No Medication Administered data Immunizations No Immunization data Assessments Condition Codes Effective Dates Right upper quadrant pain ICD-10: R10.11 ICD-9: 789.01 02/12/2018 Slow transit constipation ICD-10: K59.01 ICD-9: 564.01 02/12/2018 Generalized abdominal pain ICD-10: R10.84 ICD-9: 789.07 02/12/2018 Urinary tract infection, site not specified ICD-10: N39.0 ICD-9: 599.0 09/14/2017 Muscle spasm of back ICD-10: M62.830 ICD-9: 724.8 04/22/2017 Low back pain ICD-10: M54.5 ICD-9: 724.2 04/22/2017 Other malaise ICD-10: R53.81 ICD-9: 780.79 04/22/2017 Other fatigue ICD-10: R53.83 ICD-9: 780.79 04/22/2017 Reason For Visit Reason For Visit Effective Dates Notes abdominal pain 02/12/2018 back pain 04/22/2017 abdominal pain 12/25/2015 Results Observation Observation Code Item Item Code Result Date Urine Culture Ucult Complete >100,000 col/ml aerobic growth sent to ref lab 09/15/2017 [place] Spotted Fever Igg/Igm 556715 [place] SPOTTED FEVER IGM EIA . 04/30/2017 [place] Spotted Fever Igg/Igm 225197 RMSF, IGM 0.17 index 04/30/2017 [place] Spotted Fever Igg/Igm 286676 [place] SPOTTED FEVER IGG EIA FLEX . 04/30/2017 [place] Spotted Fever Igg/Igm 188760 RMSF, IGG SCREEN-FLEX Negative 04/30/2017 Ehrlichia Chaffeensis Antibody Igm 544982 EHRLICHIA CHAFFEENSIS IGM < 1:16 04/29/2017 Ehrlichia Chaffeensis Antibody Igg 544515 EHRLICHIA CHAFFEENSIS IGG <1:64 04/29/2017 Lymes Disease Total Antibodies With Western Blot Reflex [id number] B. BURGDORFERI, IGG/IGM 0.31 04/24/2017 Lymes Disease Total Antibodies With Western Blot Reflex [id number] 04/24/2017 Tsh Ord6 hTSH II 2.10 uIU/mL 04/22/2017 C-Reactive Protein Qnt Crqnt CRP 0.1 mg/dl 04/22/2017 Cbc With Differential Ord2 WBC 7.35 K/ul 04/22/2017 Cbc With Differential Ord2 RBC 5.00 M/ul 04/22/2017 Cbc With Differential Ord2 HGB 15.0 g/dl 04/22/2017 Cbc With Differential Ord2 Neut% 57.6 % 04/22/2017 Cbc With Differential Ord2 HCT 45.0 % 04/22/2017 Cbc With Differential Ord2 MCV 90.0 fl 04/22/2017 Cbc With Differential Ord2 Lymph% 32.0 % 04/22/2017 Cbc With Differential Ord2 [place]% 6.9 % 04/22/2017 Cbc With Differential Ord2 MCH 30.0 pg 04/22/2017 Cbc With Differential Ord2 MCHC 33.3 pg 04/22/2017 Cbc With Differential Ord2 Eos% 3.1 % 04/22/2017 Cbc With Differential Ord2 Baso% 0.4 % 04/22/2017 Cbc With Differential Ord2 PLT 291 K/ul 04/22/2017 Cbc With Differential Ord2 RDW 14.0 % 04/22/2017 Cbc With Differential Ord2 Neut ABS# 4.23 K/ul 04/22/2017 Cbc With Differential Ord2 Lymph ABS# 2.35 K/ul 04/22/2017 Cbc With Differential Ord2 [place] ABS# 0.5 K/ul 04/22/2017 Cbc With Differential Ord2 Eos ABS# 0.2 K/ul 04/22/2017 Cbc With Differential Ord2 Baso ABS# 0.0 K/ul 04/22/2017 Comp Metabolic Crq153 NA 138 mEq/L 04/22/2017 Comp Metabolic Hqu213 K 4.5 mEq/L 04/22/2017 Comp Metabolic Qns751 CL 102 mEq/L 04/22/2017 Comp Metabolic Pnf308 CO2 26.0 mEq/L 04/22/2017 Comp Metabolic Phu674 ANION GAP 15 04/22/2017 Comp Metabolic Rhz016 GLUCOSE 87 mg/dL 04/22/2017 Comp Metabolic Zif394 Creat 1.0 mg/dL 04/22/2017 Comp Metabolic Vkz804 eGFR 62 ml/min/1.73m2 04/22/2017 Comp Metabolic Hlu678 BUN 15 mg/dL 04/22/2017 Comp Metabolic Wct055 B/C Ratio 15.3 Ratio 04/22/2017 Comp Metabolic Eua989 CALCIUM 9.5 mg/dL 04/22/2017 Comp Metabolic Nif853 ALK PHOS 39 U/L 04/22/2017 Comp Metabolic Zkb156 AST(SGOT) 18 U/L 04/22/2017 Comp Metabolic Izt756 ALT(SGPT) 16 U/L 04/22/2017 Comp Metabolic Cjc457 BILI T 0.4 mg/dL 04/22/2017 Comp Metabolic Oee987 ALBUMIN 4.8 g/dL 04/22/2017 Comp Metabolic Sua655 TPRO 7.1 g/dL 04/22/2017 Comp Metabolic Fcp276 GLOB 2.3 g/dL 04/22/2017 Comp Metabolic Aut686 A/G Ratio 2.1 Ratio 04/22/2017 Comp Metabolic Umt054 Osmo 276 mOsmo 04/22/2017 Sed Rate Ord21 ESR 1 mm/hr 04/22/2017 Comp Metabolic Emc443 NA 137 mEq/L 12/25/2015 Comp Metabolic Ual653 K 4.2 mEq/L 12/25/2015 Comp Metabolic Zww468 CL 105 mEq/L 12/25/2015 Comp Metabolic Dsf678 CO2 26.0 mEq/L 12/25/2015 Comp Metabolic Yuy769 ANION GAP 10 12/25/2015 Comp Metabolic Qqb052 GLUCOSE 92 mg/dL 12/25/2015 Comp Metabolic Ket350 Creat 1.0 mg/dL 12/25/2015 Comp Metabolic Frx713 eGFR 62 ml/min/1.73m2 12/25/2015 Comp Metabolic Sve944 BUN 15 mg/dL 12/25/2015 Comp Metabolic Qas090 B/C Ratio 15.2 Ratio 12/25/2015 Comp Metabolic Lxk302 CALCIUM 9.6 mg/dL 12/25/2015 Comp Metabolic Udc071 ALK PHOS 30 U/L 12/25/2015 Comp Metabolic Exv318 AST(SGOT) 17 U/L 12/25/2015 Comp Metabolic Qrj041 ALT(SGPT) 16 U/L 12/25/2015 Comp Metabolic Mjr500 BILI T 0.6 mg/dL 12/25/2015 Comp Metabolic Mwt903 ALBUMIN 4.7 g/dL 12/25/2015 Comp Metabolic Nlq510 TPRO 7.0 g/dL 12/25/2015 Comp Metabolic Rrr761 GLOB 2.3 g/dL 12/25/2015 Comp Metabolic Mqo784 A/G Ratio 2.0 Ratio 12/25/2015 Comp Metabolic Gaa778 Osmo 274 mOsmo 12/25/2015 Amylase Ord34 AMYLASE [...] 15.0 g/dl 12/25/2015 Cbc With Differential Ord2 Neut% 55.2 % 12/25/2015 Cbc With Differential Ord2 HCT 44.2 % 12/25/2015 Cbc With Differential Ord2 MCV 89.3 fl 12/25/2015 Cbc With Differential Ord2 Lymph% 32.8 % 12/25/2015 Cbc With Differential Ord2 MCH 30.3 pg 12/25/2015 Cbc With Differential Ord2 [place]% 8.0 % 12/25/2015 Cbc With Differential Ord2 MCHC 33.9 pg 12/25/2015 Cbc With Differential Ord2 Eos% 3.4 % 12/25/2015 Cbc With Differential Ord2 Baso% 0.6 % 12/25/2015 Cbc With Differential Ord2 PLT 249 K/ul 12/25/2015 Cbc With Differential Ord2 RDW 13.5 % 12/25/2015 Cbc With Differential Ord2 Neut ABS# 2.62 K/ul 12/25/2015 Cbc With Differential Ord2 Lymph ABS# 1.56 K/ul 12/25/2015 Cbc With Differential Ord2 [place] ABS# 0.4 K/ul 12/25/2015 Cbc With Differential Ord2 Eos ABS# 0.2 K/ul 12/25/2015 Cbc With Differential Ord2 Baso ABS# 0.0 K/ul 12/25/2015 Tsh Ord6 hTSH II 0.99 uIU/mL 12/25/2015 Review of Systems System Result Effective Dates Constitutional No recent illness 02/12/2018 Constitutional No [...] Result Effective Dates Notes Full Exam - General 1995 Constitutional general appearance Overall: well developed 02/12/2018 [...] Codes Date URINALYSIS NONAUTO W/O SCOPE CPT-4: 21919 09/14/2017 URINALYSIS NONAUTO W/O SCOPE CPT-4: 41711 12/25/2015 Vital Signs Date Vital 02/12/2018 Blood Pressure 1: 104/60 Code: 8480-6 BMI: 26.1 Code: 17645-8 Heart Rate 1: 71 bpm Height: 5'6" SpO2: 95% Weight: 162 lbs 04/22/2017 Blood Pressure 1: 118/68 Code: 8480-6 Heart Rate 1: 72 bpm Height: SpO2: 98% Weight: 12/25/2015 Blood Pressure 1: 120/70 Code: 8480-6 BMI: 25.0 Code: 31509-6 Heart Rate 1: 82 bpm Height: 5'6" SpO2: 97% Weight: 155 lbs Functional Status No Functional Status data History of Present Illness Symptom Name Status Result Effective Date Notes abdominal pain Location in the RUQ 02/12/2018 [...] data Encounters Encounter Performer Location Codes Date 65867 EST. PATIENT, LEVEL IV Diagnosis: Right upper quadrant pain[ICD10: R10.11] Diagnosis: Generalized abdominal pain[ICD10: R10.84] Diagnosis: Slow transit constipation[ICD10: K59.01] April Melvin MD, [facility] CPT-4: 56762 02/12/2018 46581 EST. PATIENT, LEVEL IV Diagnosis: Other fatigue[ICD10: R53.83] Diagnosis: Other malaise[ICD10: R53.81] Diagnosis: Low back pain[ICD10: M54.5] Diagnosis: Muscle spasm of back[ICD10: M62.830] [facility] CPT- 4: 23764 04/22/2017 ([id number]) OFFICE VISIT, NEW - LEVEL 3 Diagnosis: Right upper quadrant pain[ICD10: R10.11] Joanna Melvin MD, [facility] CPT-4: 50993 12/25/2015 Plan of Care Planned Activity Notes Codes Status Date Care Plan: Referral Order SNOMED-CT : 331088370 Pending 02/15/2018 Care Plan: CT ABD & PELV W/CONTRAST LOINC : 82194-4 Pending 02/15/2018 Visit Plan: RUQ pain, generalized [...] this regimen. 02/12/2018 Appointment: April Jha WPtel[facility] [place] ([place] min) Moderate 02/12/2018 Patient Education: Patient [...] concerns. 04/22/2017 Appointment: Abhijeet [facility] [phone] [facility] (30 min) Complex 04/22/2017 Patient Education: Patient Medication Summary Completed 04/22/2017 Visit Plan: RUQ pain-UA negative-recommend low fat diet-start prilosec 20mg daily-call if symptoms uncontrolled or new symptoms develop. Check labs today in the office. 12/25/2015 Appointment: Jo[facility] [phone] [facility] New Patient 12/25/2015 Patient Education: [...] with any changes, questions, or concerns. . RUQ pain, generalized abdominal pain - [...]
--- OUTSIDE RECORDS SUMMARY | 2018-11-09 16:59 | XMS REPORT | CCD ---
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 Role Phone PP Unavailable CCM Unavailable Summary Purpose Interface Exchange Insurance Providers Payer name Policy type / Coverage type Covered green party ID Effective Begin Date Effective End Date Blue Cross Blue [facility] Blue Cross/[facility] [id number] Unknown Family history Mother Diagnosis Age At Onset Hyperlipidemia Unknown Social History Social History Element Codes Description Effective Dates Marital status Unknown Hardy 12/25/2015 Number of children Unknown 2 12/25/[address]: 4675432 Quit over 10 years ago 1992 12/25/[address]: 605690 Currently drinks alcohol 12/25/2015 Frequency of drinks SNOMED CT: 595633584 1- 4 drinks per week 12/25/2015 Allergies, [...] Start Date Stop Date Status Fill Instructions tramadol 50 mg tablet RxNorm: 115498 1 Tablet(s) PO Q6 as needed 05/11/2018 06/09/2018 Active tramadol 50 mg tablet RxNorm: 965785 1 Tablet(s) PO Q6 as needed 04/21/2018 05/10/2018 Inactive tramadol 50 mg tablet RxNorm: 734598 1 Tablet(s) PO Q6 as needed 04/02/2018 04/20/2018 Inactive tramadol 50 mg tablet RxNorm: 973990 1 Tablet(s) PO Q6 as needed 03/18/2018 04/01/2018 Inactive pantoprazole 40 mg tablet,delayed release RxNorm: 829602 1 Tablet(s) PO daily 02/26/2018 03/27/2018 Inactive pantoprazole 40 mg tablet,delayed release RxNorm: 067088 1 Tablet(s) PO daily 02/26/2018 02/25/2018 Inactive tramadol 50 mg tablet RxNorm: 200036 1 Tablet(s) PO Q6 as needed 02/26/2018 03/17/2018 Inactive Keflex 500 mg capsule RxNorm: 090405 1 Capsule(s) PO TID 09/14/2017 09/20/2017 Inactive Keflex 500 mg capsule RxNorm: 844606 1 Capsule(s) PO TID 09/14/2017 09/13/2017 Inactive cyclobenzaprine 5 mg tablet RxNorm: 688608 1-2 Tablet(s) PO TID as needed 04/22/2017 04/26/2017 Inactive tramadol 50 mg tablet RxNorm: 387525 Tablet(s) PO Q6 as needed 12/25/2015 02/25/2018 Inactive Vitamin B & C oral RxNorm: 094245 oral No Start Date Active Multiple Vitamin oral RxNorm: 48373 oral No Start Date Active tramadol 50 mg tablet RxNorm: 192728 Tablet(s) PO as needed No Start Date [...] of back ICD-10: M62.830 ICD-9: 724.8 04/22/2017 Other fatigue ICD-10: R53.83 ICD-9: 780.79 04/22/2017 Other malaise ICD-10: R53.81 ICD-9: 780.79 04/22/2017 Low back pain ICD-10: M54.5 ICD-9: 724.2 04/22/2017 Reason For Visit Reason For Visit Effective Dates Notes abdominal pain 02/12/2018 back pain 04/22/2017 abdominal pain 12/25/2015 Results Observation Observation Code Item Item Code Result Date Urine Culture Ucult Complete >100,000 col/ml aerobic growth sent to ref lab 09/15/2017 [place] Spotted Fever Igg/Igm 793875 [place] SPOTTED FEVER IGM EIA . 04/30/2017 [place] Spotted Fever Igg/Igm 605679 RMSF, IGM 0.17 index 04/30/2017 [place] Spotted Fever Igg/Igm 056050 [place] SPOTTED FEVER IGG EIA FLEX . 04/30/2017 [place] Spotted Fever Igg/Igm 253034 RMSF, IGG SCREEN-FLEX Negative 04/30/2017 Ehrlichia Chaffeensis Antibody Igm 185108 EHRLICHIA CHAFFEENSIS IGM < 1:16 04/29/2017 Ehrlichia Chaffeensis Antibody Igg 819528 EHRLICHIA CHAFFEENSIS IGG <1:64 04/29/2017 Lymes Disease Total Antibodies With Western Blot Reflex [id number] B. BURGDORFERI, IGG/IGM 0.31 04/24/2017 Lymes Disease Total Antibodies With Western Blot Reflex [id number] 04/24/2017 Tsh Ord6 hTSH II 2.10 uIU/mL [...] 30.0 pg 04/22/2017 Cbc With Differential Ord2 [place]% 6.9 % 04/22/2017 Cbc With Differential Ord2 [...] 2.35 K/ul 04/22/2017 Cbc With Differential Ord2 [place] ABS# 0.5 K/ul 04/22/2017 Cbc With Differential Ord2 Eos ABS# 0.2 K/ul 04/22/2017 Cbc With Differential Ord2 Baso ABS# 0.0 K/ul 04/22/2017 Comp Metabolic Bve195 NA 138 mEq/L 04/22/2017 Comp Metabolic Tfz266 K 4.5 mEq/L 04/22/2017 Comp Metabolic Zkc805 CL 102 mEq/L 04/22/2017 Comp Metabolic Toy440 CO2 26.0 mEq/L 04/22/2017 Comp Metabolic Bmw303 ANION GAP 15 04/22/2017 Comp Metabolic Fjp040 GLUCOSE 87 mg/dL 04/22/2017 Comp Metabolic Kaj565 Creat 1.0 mg/dL 04/22/2017 Comp Metabolic Ius231 eGFR 62 ml/min/1.73m2 04/22/2017 Comp Metabolic Eux640 BUN 15 mg/dL 04/22/2017 Comp Metabolic Trk292 B/C Ratio 15.3 Ratio 04/22/2017 Comp Metabolic Bxr157 CALCIUM 9.5 mg/dL 04/22/2017 Comp Metabolic Stt497 ALK PHOS 39 U/L 04/22/2017 Comp Metabolic Gtd950 AST(SGOT) 18 U/L 04/22/2017 Comp Metabolic Sno134 ALT(SGPT) 16 U/L 04/22/2017 Comp Metabolic Ozd941 BILI T 0.4 mg/dL 04/22/2017 Comp Metabolic Uou979 ALBUMIN 4.8 g/dL 04/22/2017 Comp Metabolic Wsg708 TPRO 7.1 g/dL 04/22/2017 Comp Metabolic Rrz267 GLOB 2.3 g/dL 04/22/2017 Comp Metabolic Rdr551 A/G Ratio 2.1 Ratio 04/22/2017 Comp Metabolic Dfk919 Osmo 276 mOsmo 04/22/2017 Sed Rate Ord21 ESR 1 mm/hr 04/22/2017 Comp Metabolic San205 NA 137 mEq/L 12/25/2015 Comp Metabolic Wpl384 K 4.2 mEq/L 12/25/2015 Comp Metabolic Bbj021 CL 105 mEq/L 12/25/2015 Comp Metabolic Iyc367 CO2 26.0 mEq/L 12/25/2015 Comp Metabolic Boq084 ANION GAP 10 12/25/2015 Comp Metabolic Zxh872 GLUCOSE 92 mg/dL 12/25/2015 Comp Metabolic Bzv840 Creat 1.0 mg/dL 12/25/2015 Comp Metabolic Hxa961 eGFR 62 ml/min/1.73m2 12/25/2015 Comp Metabolic Wfp702 BUN 15 mg/dL 12/25/2015 Comp Metabolic Kgf635 B/C Ratio 15.2 Ratio 12/25/2015 Comp Metabolic Ehf495 CALCIUM 9.6 mg/dL 12/25/2015 Comp Metabolic Esr730 ALK PHOS 30 U/L 12/25/2015 Comp Metabolic Kpk748 AST(SGOT) 17 U/L 12/25/2015 Comp Metabolic Ada666 ALT(SGPT) 16 U/L 12/25/2015 Comp Metabolic Nrk827 BILI T 0.6 mg/dL 12/25/2015 Comp Metabolic Tlo600 ALBUMIN 4.7 g/dL 12/25/2015 Comp Metabolic Tms488 TPRO 7.0 g/dL 12/25/2015 Comp Metabolic Owu590 GLOB 2.3 g/dL 12/25/2015 Comp Metabolic Roq348 A/G Ratio 2.0 Ratio 12/25/2015 Comp Metabolic Lfn242 Osmo 274 mOsmo 12/25/2015 Amylase Ord34 AMYLASE [...] 55.2 % 12/25/2015 Cbc With Differential Ord2 Lymph% 32.8 % 12/25/2015 Cbc With Differential Ord2 MCV 89.3 fl 12/25/2015 Cbc With Differential Ord2 [place]% 8.0 % 12/25/2015 Cbc With Differential Ord2 MCH 30.3 pg 12/25/2015 Cbc With Differential Ord2 Eos% 3.4 % 12/25/2015 Cbc With Differential Ord2 MCHC 33.9 pg 12/25/2015 Cbc With Differential Ord2 PLT 249 K/ul 12/25/2015 Cbc With Differential Ord2 Baso% 0.6 % 12/25/2015 Cbc With Differential Ord2 RDW 13.5 % 12/25/2015 Cbc With Differential Ord2 Neut ABS# 2.62 K/ul 12/25/2015 Cbc With Differential Ord2 Lymph ABS# 1.56 K/ul 12/25/2015 Cbc With Differential Ord2 [place] ABS# 0.4 K/ul 12/25/2015 Cbc With Differential [...] Effective Dates Notes Full Exam - General 1994 Constitutional general [...] Codes Date URINALYSIS NONAUTO W/O SCOPE CPT-4: 57892 09/14/2017 URINALYSIS NONAUTO W/O SCOPE CPT-4: 43052 12/25/2015 Vital Signs Date Vital 02/12/2018 Blood Pressure 1: 104/60 Code: 8480-6 BMI: 26.1 Code: 53856-0 Heart Rate 1: 71 bpm Height: 5'6" SpO2: 95% Weight: 162 lbs 04/22/2017 Blood Pressure 1: 118/68 Code: 8480-6 Heart Rate 1: 72 bpm Height: SpO2: 98% Weight: 12/25/2015 Blood Pressure 1: 120/70 Code: 8480-6 BMI: 25.0 Code: 51855-3 Heart Rate 1: 82 bpm Height: 5'6" [...] data Encounters Encounter Performer Location Codes Date 09969 EST. PATIENT, LEVEL IV Diagnosis: Right upper quadrant pain[ICD10: R10.11] Diagnosis: Generalized abdominal pain[ICD10: R10.84] Diagnosis: Slow transit constipation[ICD10: K59.01] April Melvin MD, [facility] CPT-4: 14946 02/12/2018 58264 EST. PATIENT, LEVEL IV Diagnosis: Other fatigue[ICD10: R53.83] Diagnosis: Other malaise[ICD10: R53.81] Diagnosis: Low back pain[ICD10: M54.5] Diagnosis: Muscle spasm of back[ICD10: M62.830] [facility] CPT- 4: 38884 04/22/2017 ([id number]) OFFICE VISIT, NEW - LEVEL 3 Diagnosis: Right upper quadrant pain[ICD10: R10.11] [facility] CPT-4: 71602 12/25/2015 Plan of Care Planned Activity Notes Codes Status Date Care Plan: Referral Order SNOMED-CT : 882939108 Pending 02/15/2018 Care Plan: CT ABD & PELV W/CONTRAST LOINC : 45392-7 Pending 02/15/2018 Visit Plan: RUQ pain, generalized [...] this regimen. 02/12/2018 Appointment: April Jha WPtel: [address] [place], [place] [phone] (15 min) Moderate 02/12/2018 Patient Education: Patient [...] or concerns. 04/22/2017 Appointment: [facility] [phone] [facility] ([facility] min) Complex 04/22/2017 Patient Education: Patient Medication Summary Completed 04/22/2017 Visit Plan: RUQ pain-UA negative-recommend low fat diet-start prilosec 20mg daily-call if symptoms uncontrolled or new symptoms develop. Check labs today in the office. 12/25/2015 Appointment: [place] [facility] [phone] [phone] New Patient 12/25/2015 Patient Education: Patient [...]
--- OUTSIDE RECORDS SUMMARY | 2018-11-09 17:00 | XMS REPORT | CCD ---
Author Author Joanna Vickers MD, [facility] Address [address] [place] [address] Phone Care Team Providers Care Inventory Control Clerk Name Role Phone PP Unavailable CCM Unavailable Summary Purpose Interface Exchange Insurance Providers Payer name Policy type / Coverage type Covered libertarian ID Effective Begin Date Effective End Date Blue Cross Blue [facility] Blue Cross/[facility] [id number] Unknown Family history Mother Diagnosis Age At Onset Hyperlipidemia Unknown Social History Social History Element Codes Description Effective Dates Marital status Unknown Hardy 12/25/2015 Number of children Unknown 2 12/25/[address]: 4429367 Quit over 10 years ago 1992 12/25/[address]: 542026 Currently drinks alcohol 12/25/2015 Frequency of drinks SNOMED CT: 640872138 1- 4 drinks per week 12/25/2015 Allergies, [...] Fill Instructions tramadol 50 mg tablet RxNorm: 113001 1 Tablet(s) PO Q6 as needed 04/21/2018 05/20/2018 Active tramadol 50 mg tablet RxNorm: 902645 1 Tablet(s) PO Q6 as needed 04/02/2018 04/20/2018 Inactive tramadol 50 mg tablet RxNorm: 042182 1 Tablet(s) PO Q6 as needed 03/18/2018 04/01/2018 Inactive pantoprazole 40 mg tablet,delayed release RxNorm: 806057 1 Tablet(s) PO daily 02/26/2018 03/27/2018 Inactive pantoprazole 40 mg tablet,delayed release RxNorm: 524986 1 Tablet(s) PO daily 02/26/2018 02/25/2018 Inactive tramadol 50 mg tablet RxNorm: 322216 1 Tablet(s) PO Q6 as needed 02/26/2018 03/17/2018 Inactive Keflex 500 mg capsule RxNorm: 605660 1 Capsule(s) PO TID 09/14/2017 09/20/2017 Inactive Keflex 500 mg capsule RxNorm: 382326 1 Capsule(s) PO TID 09/14/2017 09/13/2017 Inactive cyclobenzaprine 5 mg tablet RxNorm: 181948 1-2 Tablet(s) PO TID as needed 04/22/2017 04/26/2017 Inactive tramadol 50 mg tablet RxNorm: 018494 Tablet(s) PO Q6 as needed 12/25/2015 02/25/2018 Inactive Vitamin B & C oral RxNorm: 422240 oral No Start Date Active Multiple Vitamin oral RxNorm: 77245 oral No Start Date Active tramadol 50 mg tablet RxNorm: 924409 Tablet(s) PO as needed No Start Date [...] aerobic growth sent to ref lab 09/15/2017 [place] Spotted Fever Igg/Igm 366929 [place] SPOTTED FEVER IGM EIA . 04/30/2017 [place] Spotted Fever Igg/Igm 914125 RMSF, IGM 0.17 index 04/30/2017 [place] Spotted Fever Igg/Igm 297637 [place] SPOTTED FEVER IGG EIA FLEX . 04/30/2017 [place] Spotted Fever Igg/Igm 191189 RMSF, IGG SCREEN-FLEX Negative 04/30/2017 Ehrlichia Chaffeensis Antibody Igm 081452 EHRLICHIA CHAFFEENSIS IGM < 1:16 04/29/2017 Ehrlichia Chaffeensis Antibody Igg 273238 EHRLICHIA CHAFFEENSIS IGG <1:64 04/29/2017 Lym[place] Disease Total Antibodies With Western Blot Reflex [id number] B. BURGDORFERI, IGG/IGM 0.31 04/24/2017 [place] Disease Total Antibodies With Western Blot Reflex [id number] 04/24/2017 Tsh Ord6 hTSH II 2.10 uIU/mL [...] 30.0 pg 04/22/2017 Cbc With Differential Ord2 Mineral% 6.9 % 04/22/2017 Cbc With Differential Ord2 [...] 2.35 K/ul 04/22/2017 Cbc With Differential Ord2 Mineral ABS# 0.5 K/ul 04/22/2017 Cbc With Differential Ord2 Eos ABS# 0.2 K/ul 04/22/2017 Cbc With Differential Ord2 Baso ABS# 0.0 K/ul 04/22/2017 Comp Metabolic Til073 NA 138 mEq/L 04/22/2017 Comp Metabolic Pfg682 K 4.5 mEq/L 04/22/2017 Comp Metabolic Yyz850 CL 102 mEq/L 04/22/2017 Comp Metabolic Kzk512 CO2 26.0 mEq/L 04/22/2017 Comp Metabolic Fwr554 ANION GAP 15 04/22/2017 Comp Metabolic Kzg966 GLUCOSE 87 mg/dL 04/22/2017 Comp Metabolic Czd276 Creat 1.0 mg/dL 04/22/2017 Comp Metabolic Gqs203 eGFR 62 ml/min/1.73m2 04/22/2017 Comp Metabolic Mzu096 BUN 15 mg/dL 04/22/2017 Comp Metabolic Lkp257 B/C Ratio 15.3 Ratio 04/22/2017 Comp Metabolic Qmo006 CALCIUM 9.5 mg/dL 04/22/2017 Comp Metabolic Jzi432 ALK PHOS 39 U/L 04/22/2017 Comp Metabolic Jxu988 AST(SGOT) 18 U/L 04/22/2017 Comp Metabolic Mdz198 ALT(SGPT) 16 U/L 04/22/2017 Comp Metabolic Cpc963 BILI T 0.4 mg/dL 04/22/2017 Comp Metabolic Gif102 ALBUMIN 4.8 g/dL 04/22/2017 Comp Metabolic Azu895 TPRO 7.1 g/dL 04/22/2017 Comp Metabolic Lpk003 GLOB 2.3 g/dL 04/22/2017 Comp Metabolic Trk254 A/G Ratio 2.1 Ratio 04/22/2017 Comp Metabolic Mqb400 Osmo 276 mOsmo 04/22/2017 Sed Rate Ord21 ESR 1 mm/hr 04/22/2017 Comp Metabolic Qhf702 NA 137 mEq/L 12/25/2015 Comp Metabolic Bxb968 K 4.2 mEq/L 12/25/2015 Comp Metabolic Ytn405 CL 105 mEq/L 12/25/2015 Comp Metabolic Wdm843 CO2 26.0 mEq/L 12/25/2015 Comp Metabolic Att040 ANION GAP 10 12/25/2015 Comp Metabolic Mlc606 GLUCOSE 92 mg/dL 12/25/2015 Comp Metabolic Crc157 Creat 1.0 mg/dL 12/25/2015 Comp Metabolic Vfo899 eGFR 62 ml/min/1.73m2 12/25/2015 Comp Metabolic Zyd049 BUN 15 mg/dL 12/25/2015 Comp Metabolic Bfp811 B/C Ratio 15.2 Ratio 12/25/2015 Comp Metabolic Twj824 CALCIUM 9.6 mg/dL 12/25/2015 Comp Metabolic Cmg789 ALK PHOS 30 U/L 12/25/2015 Comp Metabolic Jqy417 AST(SGOT) 17 U/L 12/25/2015 Comp Metabolic Nvx134 ALT(SGPT) 16 U/L 12/25/2015 Comp Metabolic Agc589 BILI T 0.6 mg/dL 12/25/2015 Comp Metabolic Aqz991 ALBUMIN 4.7 g/dL 12/25/2015 Comp Metabolic Pof724 TPRO 7.0 g/dL 12/25/2015 Comp Metabolic Pgh653 GLOB 2.3 g/dL 12/25/2015 Comp Metabolic Hmm495 A/G Ratio 2.0 Ratio 12/25/2015 Comp Metabolic Wxs628 Osmo 274 mOsmo 12/25/2015 Amylase Ord34 AMYLASE [...] 89.3 fl 12/25/2015 Cbc With Differential Ord2 Mineral% 8.0 % 12/25/2015 Cbc With Differential Ord2 [...] 1.56 K/ul 12/25/2015 Cbc With Differential Ord2 Mineral ABS# 0.4 K/ul 12/25/2015 Cbc With Differential [...] Codes Date URINALYSIS NONAUTO W/O SCOPE CPT-4: 02826 09/14/2017 URINALYSIS NONAUTO W/O SCOPE CPT-4: 64064 12/25/2015 Vital Signs Date Vital 02/12/2018 Blood Pressure 1: 104/60 Code: 8480-6 BMI: 26.1 Code: 90102-9 Heart Rate 1: 71 bpm Height: 5'6" SpO2: 95% Weight: 162 lbs 04/22/2017 Blood Pressure 1: 118/68 Code: 8480-6 Heart Rate 1: 72 bpm Height: SpO2: 98% Weight: 12/25/2015 Blood Pressure 1: 120/70 Code: 8480-6 BMI: 25.0 Code: 86655-5 Heart Rate 1: 82 bpm Height: 5'6" [...] data Encounters Encounter Performer Location Codes Date [address]58 EST. PATIENT, LEVEL IV Diagnosis: Right upper quadrant pain[ICD10: R10.11] Diagnosis: Generalized abdominal pain[ICD10: R10.84] Diagnosis: Slow transit constipation[ICD10: K59.01] [facility] CPT-4: 45545 02/12/2018 00050 EST. PATIENT, LEVEL IV Diagnosis: Other fatigue[ICD10: R53.83] Diagnosis: Other malaise[ICD10: R53.81] Diagnosis: Low back pain[ICD10: M54.5] Diagnosis: Muscle spasm of back[ICD10: M62.830] [facility] CPT- 4: 28049 04/22/2017 ([id number]) OFFICE VISIT, NEW - LEVEL 3 Diagnosis: Right upper quadrant pain[ICD10: R10.11] [facility] CPT-4: 99700 12/25/2015 Plan of Care Planned Activity Notes Codes Status Date Care Plan: Referral Order SNOMED-CT : 470431067 Pending 02/15/2018 Care Plan: CT ABD & PELV W/CONTRAST LOINC : 16790-7 Pending 02/15/2018 Visit Plan: RUQ pain, generalized [...] this regimen. 02/12/2018 Appointment: April Jha WPtel: [facility] [place] (15 min) Moderate 02/12/2018 Patient Education: Patient [...] or concerns. 04/22/2017 Appointment: April Jha WPtel: [address] [facility] [place] (30 min) Complex 04/22/2017 Patient Education: Patient Medication Summary Completed 04/22/2017 Visit Plan: RUQ pain-UA negative-recommend low fat diet-start prilosec 20mg daily-call if symptoms uncontrolled or new symptoms develop. Check labs today in the office. 12/25/2015 Appointment: Joanna Vickers WPtel: [facility] [place] New Patient 12/25/2015 Patient Education: Patient Medication [...]
--- OUTSIDE RECORDS SUMMARY | 2018-11-09 17:01 | XMS REPORT | CCD ---
Author Author Joanna Vickers MD, [facility] Address [address] [place] [address] Phone Care Team Providers Care Sales Review Clerk Name Role Phone PP Unavailable CCM Unavailable Summary Purpose Interface Exchange Insurance Providers Payer name Policy type / Coverage type Covered libertarian ID Effective Begin Date Effective End Date Blue Cross Blue [facility] Blue Cross/[facility] [id number] Unknown Family history Mother Diagnosis Age At Onset Hyperlipidemia Unknown Social History Social History Element Codes Description Effective Dates Marital status Unknown Hardy 12/25/2015 Number of children Unknown 2 12/25/[address]: 6210569 Quit over 10 years ago 1992 12/25/[address]: 335338 Currently drinks alcohol 12/25/2015 Frequency of drinks SNOMED CT: 832904056 1- 4 drinks per week 12/25/2015 Allergies, [...] Fill Instructions tramadol 50 mg tablet RxNorm: 097118 1 Tablet(s) PO Q6 as needed 03/18/2018 04/16/2018 Active pantoprazole 40 mg tablet,delayed release RxNorm: 057935 1 Tablet(s) PO daily 02/26/2018 03/27/2018 Active pantoprazole 40 mg tablet,delayed release RxNorm: 494091 1 Tablet(s) PO daily 02/26/2018 02/25/2018 Inactive tramadol 50 mg tablet RxNorm: 247093 1 Tablet(s) PO Q6 as needed 02/26/2018 03/17/2018 Inactive Keflex 500 mg capsule RxNorm: 039517 1 Capsule(s) PO TID 09/14/2017 09/20/2017 Inactive Keflex 500 mg capsule RxNorm: 933670 1 Capsule(s) PO TID 09/14/2017 09/13/2017 Inactive cyclobenzaprine 5 mg tablet RxNorm: 605590 1-2 Tablet(s) PO TID as needed 04/22/2017 04/26/2017 Inactive tramadol 50 mg tablet RxNorm: 579849 Tablet(s) PO Q6 as needed 12/25/2015 02/25/2018 Inactive Vitamin B & C oral RxNorm: 192478 oral No Start Date Active Multiple Vitamin oral RxNorm: 32583 oral No Start Date Active tramadol 50 mg tablet RxNorm: 164288 Tablet(s) PO as needed No Start Date [...] aerobic growth sent to ref lab 09/15/2017 [place] Spotted Fever Igg/Igm 910572 BR[place] SPOTTED FEVER IGM EIA . 04/30/2017 [place] Spotted Fever Igg/Igm 581849 RMSF, IGM 0.17 index 04/30/2017 [place] Spotted Fever Igg/Igm 780464 BR[place] SPOTTED FEVER IGG EIA FLEX . 04/30/2017 [place] Spotted Fever Igg/Igm 668203 RMSF, IGG SCREEN-FLEX Negative 04/30/2017 Ehrlichia Chaffeensis Antibody Igm 529026 EHRLICHIA CHAFFEENSIS IGM < 1:16 04/29/2017 Ehrlichia Chaffeensis Antibody Igg 550644 EHRLICHIA CHAFFEENSIS IGG <1:64 04/29/2017 Lymes Disease Total Antibodies With Western Blot Reflex [id number] B. BURGDORFERI, IGG/IGM 0.31 04/24/2017 [place]ym[place] Disease Total Antibodies With Western Blot Reflex [id number] 04/24/2017 Tsh Ord6 hTSH II 2.10 uIU/mL [...] 30.0 pg 04/22/2017 Cbc With Differential Ord2 [place]% 6.9 % 04/22/2017 Cbc With Differential Ord2 [...] 2.35 K/ul 04/22/2017 Cbc With Differential Ord2 [place] ABS# 0.5 K/ul 04/22/2017 Cbc With Differential Ord2 Eos ABS# 0.2 K/ul 04/22/2017 Cbc With Differential Ord2 Baso ABS# 0.0 K/ul 04/22/2017 Comp Metabolic Iex488 NA 138 mEq/L 04/22/2017 Comp Metabolic Svd944 K 4.5 mEq/L 04/22/2017 Comp Metabolic Zzl160 CL 102 mEq/L 04/22/2017 Comp Metabolic Lub563 CO2 26.0 mEq/L 04/22/2017 Comp Metabolic Ixw721 ANION GAP 15 04/22/2017 Comp Metabolic Uyi353 GLUCOSE 87 mg/dL 04/22/2017 Comp Metabolic Dnw921 Creat 1.0 mg/dL 04/22/2017 Comp Metabolic Pmr020 eGFR 62 ml/min/1.73m2 04/22/2017 Comp Metabolic Lxl288 BUN 15 mg/dL 04/22/2017 Comp Metabolic Nvf675 B/C Ratio 15.3 Ratio 04/22/2017 Comp Metabolic Nvp877 CALCIUM 9.5 mg/dL 04/22/2017 Comp Metabolic Mea509 ALK PHOS 39 U/L 04/22/2017 Comp Metabolic Lzt446 AST(SGOT) 18 U/L 04/22/2017 Comp Metabolic Xqj117 ALT(SGPT) 16 U/L 04/22/2017 Comp Metabolic Mih858 BILI T 0.4 mg/dL 04/22/2017 Comp Metabolic Wne672 ALBUMIN 4.8 g/dL 04/22/2017 Comp Metabolic Cgx554 TPRO 7.1 g/dL 04/22/2017 Comp Metabolic Zkk570 GLOB 2.3 g/dL 04/22/2017 Comp Metabolic Dlv860 A/G Ratio 2.1 Ratio 04/22/2017 Comp Metabolic Vuv746 Osmo 276 mOsmo 04/22/2017 Sed Rate Ord21 ESR 1 mm/hr 04/22/2017 Comp Metabolic Mrj068 NA 137 mEq/L 12/25/2015 Comp Metabolic Apo553 K 4.2 mEq/L 12/25/2015 Comp Metabolic Xzv928 CL 105 mEq/L 12/25/2015 Comp Metabolic Qsf902 CO2 26.0 mEq/L 12/25/2015 Comp Metabolic Omz330 ANION GAP 10 12/25/2015 Comp Metabolic Kgk578 GLUCOSE 92 mg/dL 12/25/2015 Comp Metabolic Iyv791 Creat 1.0 mg/dL 12/25/2015 Comp Metabolic Lqh469 eGFR 62 ml/min/1.73m2 12/25/2015 Comp Metabolic Vwn888 BUN 15 mg/dL 12/25/2015 Comp Metabolic Kns358 B/C Ratio 15.2 Ratio 12/25/2015 Comp Metabolic Dfg032 CALCIUM 9.6 mg/dL 12/25/2015 Comp Metabolic Kxg491 ALK PHOS 30 U/L 12/25/2015 Comp Metabolic Aur878 AST(SGOT) 17 U/L 12/25/2015 Comp Metabolic Vph249 ALT(SGPT) 16 U/L 12/25/2015 Comp Metabolic Qtv169 BILI T 0.6 mg/dL 12/25/2015 Comp Metabolic Cmu541 ALBUMIN 4.7 g/dL 12/25/2015 Comp Metabolic Wpw647 TPRO 7.0 g/dL 12/25/2015 Comp Metabolic Ekk142 GLOB 2.3 g/dL 12/25/2015 Comp Metabolic Hxr000 A/G Ratio 2.0 Ratio 12/25/2015 Comp Metabolic Yan090 Osmo 274 mOsmo 12/25/2015 Amylase Ord34 AMYLASE [...] 89.3 fl 12/25/2015 Cbc With Differential Ord2 MCH 30.3 pg 12/25/2015 Cbc With Differential Ord2 [place]% 8.0 % 12/25/2015 Cbc With Differential Ord2 MCHC 33.9 pg 12/25/2015 Cbc With Differential Ord2 Eos% 3.4 % 12/25/2015 Cbc With Differential Ord2 PLT 249 K/ul 12/25/2015 Cbc With Differential Ord2 Baso% 0.6 % 12/25/2015 Cbc With Differential Ord2 Neut ABS# 2.62 K/ul 12/25/2015 Cbc With Differential Ord2 RDW 13.5 % 12/25/2015 Cbc With Differential Ord2 Lymph ABS# 1.56 K/ul 12/25/2015 Cbc With Differential Ord2 [place] ABS# 0.4 K/ul 12/25/2015 Cbc With Differential [...] Codes Date URINALYSIS NONAUTO W/O SCOPE CPT-4: 80462 09/14/2017 URINALYSIS NONAUTO W/O SCOPE CPT-4: 28975 12/25/2015 Vital Signs Date Vital 02/12/2018 Blood Pressure 1: 104/60 Code: 8480-6 BMI: 26.1 Code: 04047-4 Heart Rate 1: 71 bpm Height: 5'6" SpO2: 95% Weight: 162 lbs 04/22/2017 Blood Pressure 1: 118/68 Code: 8480-6 Heart Rate 1: 72 bpm Height: SpO2: 98% Weight: 12/25/2015 Blood Pressure 1: 120/70 Code: 8480-6 BMI: 25.0 Code: 26919-8 Heart Rate 1: 82 bpm Height: 5'6" [...] data Encounters Encounter Performer Location Codes Date 90124 EST. PATIENT, LEVEL IV Diagnosis: Right upper quadrant pain[ICD10: R10.11] Diagnosis: Generalized abdominal pain[ICD10: R10.84] Diagnosis: Slow transit constipation[ICD10: K59.01] [facility] CPT-4: 38392 02/12/2018 81986 EST. PATIENT, LEVEL IV Diagnosis: Other fatigue[ICD10: R53.83] Diagnosis: Other malaise[ICD10: R53.81] Diagnosis: Low back pain[ICD10: M54.5] Diagnosis: Muscle spasm of back[ICD10: M62.830] [facility] CPT- 4: 48230 04/22/2017 ([id number]) OFFICE VISIT, NEW - LEVEL 3 Diagnosis: Right upper quadrant pain[ICD10: R10.11] [facility] CPT-4: 38226 12/25/2015 Plan of Care Planned Activity Notes Codes Status Date Care Plan: Referral Order SNOMED-CT : 257046764 Pending 02/15/2018 Care Plan: CT ABD & PELV W/CONTRAST LOINC : 65807-4 Pending 02/15/2018 Visit Plan: RUQ pain, generalized [...] this regimen. 02/12/2018 Appointment: April Jha WPtel[facility] (15 min) Moderate 02/12/2018 Patient Education: Patient [...] or concerns. 04/22/2017 Appointment: April Jha WPtel[facility] [place] (30 min) Complex 04/22/2017 Patient Education: Patient Medication Summary Completed 04/22/2017 Visit Plan: RUQ pain-UA negative-recommend low fat diet-start prilosec 20mg daily-call if symptoms uncontrolled or new symptoms develop. Check labs today in the office. 12/25/2015 Appointment: Joanna Vickers WPtel[facility] [address] [facility] [place] New Patient 12/25/2015 Patient Education: Patient Medication [...]
--- OUTSIDE RECORDS SUMMARY | 2018-11-09 17:01 | XMS REPORT | CCD ---
Author Author Joanna Vickers MD, [facility] Address [address] [place] [address] Phone Care Team Providers Care Acid Bath Mixer Name Role Phone PP Unavailable CCM Unavailable Summary Purpose Interface Exchange Insurance Providers Payer name Policy type / Coverage type Covered green party ID Effective Begin Date Effective End Date Blue Cross Blue [facility] Blue Cross/[facility] [id number] Unknown Family history Mother Diagnosis Age At Onset Hyperlipidemia Unknown Social History Social History Element Codes Description Effective Dates Marital status Unknown Hardy 12/25/2015 Number of children Unknown 2 12/25/[address]: 7273348 Quit over 10 years ago 1992 12/25/[address]: 632164 Currently drinks alcohol 12/25/2015 Frequency of drinks SNOMED CT: 328824470 1- 4 drinks per week 12/25/2015 Allergies, [...] Fill Instructions tramadol 50 mg tablet RxNorm: 209883 1 Tablet(s) PO Q6 as needed 04/02/2018 05/01/2018 Active tramadol 50 mg tablet RxNorm: 761507 1 Tablet(s) PO Q6 as needed 03/18/2018 04/01/2018 Inactive pantoprazole 40 mg tablet,delayed release RxNorm: 750432 1 Tablet(s) PO daily 02/26/2018 03/27/2018 Inactive pantoprazole 40 mg tablet,delayed release RxNorm: 711399 1 Tablet(s) PO daily 02/26/2018 02/25/2018 Inactive tramadol 50 mg tablet RxNorm: 474271 1 Tablet(s) PO Q6 as needed 02/26/2018 03/17/2018 Inactive Keflex 500 mg capsule RxNorm: 403182 1 Capsule(s) PO TID 09/14/2017 09/20/2017 Inactive Keflex 500 mg capsule RxNorm: 069580 1 Capsule(s) PO TID 09/14/2017 09/13/2017 Inactive cyclobenzaprine 5 mg tablet RxNorm: 689615 1-2 Tablet(s) PO TID as needed 04/22/2017 04/26/2017 Inactive tramadol 50 mg tablet RxNorm: 517444 Tablet(s) PO Q6 as needed 12/25/2015 02/25/2018 Inactive Vitamin B & C oral RxNorm: 833003 oral No Start Date Active Multiple Vitamin oral RxNorm: 15868 oral No Start Date Active tramadol 50 mg tablet RxNorm: 329199 Tablet(s) PO as needed No Start Date 12/24/2015 Inactive Medication Administered No Medication Administered data Immunizations No Immunization data Assessments Condition Codes Effective Dates Right upper quadrant pain ICD-10: R10.11 ICD-9: 789.01 02/12/2018 Slow transit constipation ICD-10: K59.01 ICD-9: 564.01 02/12/2018 Generalized abdominal pain ICD-10: R10.84 ICD-9: 789.07 02/12/2018 Urinary tract infection, site not specified ICD-10: N39.0 ICD-9: 599.0 09/14/2017 Other malaise ICD-10: R53.81 ICD-9: 780.79 04/22/2017 Other fatigue ICD-10: R53.83 ICD-9: 780.79 04/22/2017 Muscle spasm of back ICD-10: M62.830 ICD-9: 724.8 04/22/2017 Low back pain ICD-10: M54.5 ICD-9: 724.2 04/22/2017 Reason For Visit Reason For Visit Effective Dates Notes abdominal pain 02/12/2018 back pain 04/22/2017 abdominal pain 12/25/2015 Results Observation Observation Code Item Item Code Result Date Urine Culture Ucult Complete >100,000 col/ml aerobic growth sent to ref lab 09/15/2017 [place] Spotted Fever Igg/Igm 292242 [place] SPOTTED FEVER IGM EIA . 04/30/2017 [place] Spotted Fever Igg/Igm 993104 RMSF, IGM 0.17 index 04/30/2017 [place] Spotted Fever Igg/Igm 342152 [place] SPOTTED FEVER IGG EIA FLEX . 04/30/2017 [place] Spotted Fever Igg/Igm 746519 RMSF, IGG SCREEN-FLEX Negative 04/30/2017 Ehrlichia Chaffeensis Antibody Igm 566528 EHRLICHIA CHAFFEENSIS IGM < 1:16 04/29/2017 Ehrlichia Chaffeensis Antibody Igg 171385 EHRLICHIA CHAFFEENSIS IGG <1:64 04/29/2017 Lymes Disease Total Antibodies With Western Blot Reflex [id number] B. BURGDORFERI, IGG/IGM 0.31 04/24/2017 Lymes Disease Total Antibodies With Western Blot Reflex [id number] 04/24/2017 Tsh Ord6 hTSH II 2.10 uIU/mL [...] 30.0 pg 04/22/2017 Cbc With Differential Ord2 Cecil% 6.9 % 04/22/2017 Cbc With Differential Ord2 Eos% 3.1 % 04/22/2017 Cbc With Differential Ord2 MCHC 33.3 pg 04/22/2017 Cbc With Differential Ord2 PLT 291 K/ul 04/22/2017 Cbc With Differential Ord2 Baso% 0.4 % 04/22/2017 Cbc With Differential Ord2 Neut ABS# 4.23 K/ul 04/22/2017 Cbc With Differential Ord2 RDW 14.0 % 04/22/2017 Cbc With Differential Ord2 Lymph ABS# 2.35 K/ul 04/22/2017 Cbc With Differential Ord2 Cecil ABS# 0.5 K/ul 04/22/2017 Cbc With Differential Ord2 Eos ABS# 0.2 K/ul 04/22/2017 Cbc With Differential Ord2 Baso ABS# 0.0 K/ul 04/22/2017 Comp Metabolic Ndu660 NA 138 mEq/L 04/22/2017 Comp Metabolic Jee426 K 4.5 mEq/L 04/22/2017 Comp Metabolic Abm129 CL 102 mEq/L 04/22/2017 Comp Metabolic Qmj903 CO2 26.0 mEq/L 04/22/2017 Comp Metabolic Gji055 ANION GAP 15 04/22/2017 Comp Metabolic Cvv641 GLUCOSE 87 mg/dL 04/22/2017 Comp Metabolic Wje014 Creat 1.0 mg/dL 04/22/2017 Comp Metabolic Mdi327 eGFR 62 ml/min/1.73m2 04/22/2017 Comp Metabolic Iut968 BUN 15 mg/dL 04/22/2017 Comp Metabolic Pwh403 B/C Ratio 15.3 Ratio 04/22/2017 Comp Metabolic Use382 CALCIUM 9.5 mg/dL 04/22/2017 Comp Metabolic Cyc957 ALK PHOS 39 U/L 04/22/2017 Comp Metabolic Uir497 AST(SGOT) 18 U/L 04/22/2017 Comp Metabolic Kqz790 ALT(SGPT) 16 U/L 04/22/2017 Comp Metabolic Zbw190 BILI T 0.4 mg/dL 04/22/2017 Comp Metabolic Ntn112 ALBUMIN 4.8 g/dL 04/22/2017 Comp Metabolic Fep334 TPRO 7.1 g/dL 04/22/2017 Comp Metabolic Obk599 GLOB 2.3 g/dL 04/22/2017 Comp Metabolic Lhe562 A/G Ratio 2.1 Ratio 04/22/2017 Comp Metabolic Yun913 Osmo 276 mOsmo 04/22/2017 Sed Rate Ord21 ESR 1 mm/hr 04/22/2017 Comp Metabolic Csi772 NA 137 mEq/L 12/25/2015 Comp Metabolic Epz082 K 4.2 mEq/L 12/25/2015 Comp Metabolic Cxf977 CL 105 mEq/L 12/25/2015 Comp Metabolic Yeb464 CO2 26.0 mEq/L 12/25/2015 Comp Metabolic Cod661 ANION GAP 10 12/25/2015 Comp Metabolic Qxm574 GLUCOSE 92 mg/dL 12/25/2015 Comp Metabolic Flh661 Creat 1.0 mg/dL 12/25/2015 Comp Metabolic Zur809 eGFR 62 ml/min/1.73m2 12/25/2015 Comp Metabolic Mks542 BUN 15 mg/dL 12/25/2015 Comp Metabolic Zrq907 B/C Ratio 15.2 Ratio 12/25/2015 Comp Metabolic Xrg865 CALCIUM 9.6 mg/dL 12/25/2015 Comp Metabolic Uja929 ALK PHOS 30 U/L 12/25/2015 Comp Metabolic Xdf691 AST(SGOT) 17 U/L 12/25/2015 Comp Metabolic Crl403 ALT(SGPT) 16 U/L 12/25/2015 Comp Metabolic Gwb712 BILI T 0.6 mg/dL 12/25/2015 Comp Metabolic Haw519 ALBUMIN 4.7 g/dL 12/25/2015 Comp Metabolic Uxu154 TPRO 7.0 g/dL 12/25/2015 Comp Metabolic Mpf595 GLOB 2.3 g/dL 12/25/2015 Comp Metabolic Ogc339 A/G Ratio 2.0 Ratio 12/25/2015 Comp Metabolic Jbm629 Osmo 274 mOsmo 12/25/2015 Amylase Ord34 AMYLASE 68 U/L 12/25/2015 Cbc With Differential Ord2 WBC 4.75 K/ul 12/25/2015 Cbc With Differential Ord2 RBC 4.95 M/ul 12/25/2015 Cbc With Differential Ord2 HGB 15.0 g/dl 12/25/2015 Cbc With Differential Ord2 HCT 44.2 % 12/25/2015 Cbc With Differential Ord2 Neut% 55.2 % 12/25/2015 Cbc With Differential Ord2 MCV 89.3 fl 12/25/2015 Cbc With Differential Ord2 Lymph% 32.8 % 12/25/2015 Cbc With Differential Ord2 Cecil% 8.0 % 12/25/2015 Cbc With Differential Ord2 MCH 30.3 pg 12/25/2015 Cbc With Differential Ord2 MCHC 33.9 pg 12/25/2015 Cbc With Differential Ord2 Eos% 3.4 % 12/25/2015 Cbc With Differential Ord2 Baso% 0.6 % 12/25/2015 Cbc With Differential Ord2 PLT 249 K/ul 12/25/2015 Cbc With Differential Ord2 Neut ABS# 2.62 K/ul 12/25/2015 Cbc With Differential Ord2 RDW 13.5 % 12/25/2015 Cbc With Differential Ord2 Lymph ABS# 1.56 K/ul 12/25/2015 Cbc With Differential Ord2 Cecil ABS# 0.4 K/ul 12/25/2015 Cbc With Differential Ord2 Eos ABS# 0.2 K/ul 12/25/2015 Cbc With Differential Ord2 Baso ABS# 0.0 K/ul 12/25/2015 Lipid Ord30 CHOL 253 mg/dL 12/25/2015 Lipid Ord30 HDL 61.0 mg/dl 12/25/2015 Lipid Ord30 TRIG 75 mg/dL 12/25/2015 Lipid Ord30 LDL 177 mg/dL 12/25/2015 Lipid Ord30 C/HDL 4.1 Ratio 12/25/2015 Tsh Ord6 hTSH II 0.99 uIU/mL [...] Codes Date URINALYSIS NONAUTO W/O SCOPE CPT-4: 83166 09/14/2017 URINALYSIS NONAUTO W/O SCOPE CPT-4: 09228 12/25/2015 Vital Signs Date Vital 02/12/2018 Blood Pressure 1: 104/60 Code: 8480-6 BMI: 26.1 Code: 04395-5 Heart Rate 1: 71 bpm Height: 5'6" SpO2: 95% Weight: 162 lbs 04/22/2017 Blood Pressure 1: 118/68 Code: 8480-6 Heart Rate 1: 72 bpm Height: SpO2: 98% Weight: 12/25/2015 Blood Pressure 1: 120/70 Code: 8480-6 BMI: 25.0 Code: 17525-4 Heart Rate 1: 82 bpm Height: 5'6" [...] Performer Location Codes Date EST. PATIENT, LEVEL IV Diagnosis: Right upper quadrant pain[ICD10: R10.11] Diagnosis: Generalized abdominal pain[ICD10: R10.84] Diagnosis: Slow transit constipation[ICD10: K59.01] [facility] CPT-4: 45277 02/12/2018 33003 EST. PATIENT, LEVEL IV Diagnosis: Other fatigue[ICD10: R53.83] Diagnosis: Other malaise[ICD10: R53.81] Diagnosis: Low back pain[ICD10: M54.5] Diagnosis: Muscle spasm of back[ICD10: M62.830] [facility] CPT- 4: 29869 04/22/2017 ([id number]) OFFICE VISIT, NEW - LEVEL 3 Diagnosis: Right upper quadrant pain[ICD10: R10.11] [facility] CPT-4: 26755 12/25/2015 Plan of Care Planned Activity Notes Codes Status Date Care Plan: Referral Order SNOMED-CT : 453842375 Pending 02/15/2018 Care Plan: CT ABD & PELV W/CONTRAST LOINC : 89446-4 Pending 02/15/2018 Visit Plan: RUQ pain, generalized [...] this regimen. 02/12/2018 [facility]ment: [facility] [phone] [id number] [place] ([facility] [place]) Moderate 02/12/2018 Patient [...] concerns. 04/22/2017 App[facility]ment: [facility] [phone] [id number] [place] (30 min) Complex 04/22/2017 Patient Education: Patient Medication Summary Completed 04/22/2017 Visit Plan: RUQ pain-UA negative-recommend low fat diet-start prilosec 20mg daily-call if symptoms uncontrolled or new symptoms develop. Check labs today in the office. 12/25/2015 Appointment: Joanna Vickers [facility]el[phone] New Patient 12/25/2015 Patient Education: Patient [...]
--- OUTSIDE RECORDS SUMMARY | 2018-11-09 17:02 | XMS REPORT | CCD ---
Author Author Joanna Vickers MD, [facility] Address [facility] [place] [address] Phone Care Team Providers Care Stretcher Leveler Operator Helper Name Role Phone PP Unavailable CCM Unavailable Summary Purpose Interface Exchange Insurance Providers Payer name Policy type / Coverage type Covered green party ID Effective Begin Date Effective End Date Blue Cross Blue [facility] Blue Cross/Blue Shield [id number] Unknown Unknown Family history Mother Diagnosis Age At Onset Hyperlipidemia Unknown Social History Social History Element Codes Description Effective Dates Marital status Unknown Hardy 12/25/2015 Number of children Unknown 2 12/25/[address]: 2446792 Quit over 10 years ago 1992 12/25/[address]: 615516 Currently drinks alcohol 12/25/2015 Frequency of drinks SNOMED CT: 235068925 1- 4 drinks per week 12/25/2015 Allergies, Adverse Reactions, Alerts Allergies, Adverse Reactions, Alerts data not found Past Medical History Illness Codes Condition Status Onset Date Resolved Date Low back pain ICD-9: 724.2 ICD-10: M54.5 Active 04/22/2017 Unknown Muscle spasm of back ICD- 9: 724.8 ICD-10: M62.830 Active 04/22/2017 Unknown Other fatigue ICD-9: 780.79 ICD-10: R53.83 Active 04/22/2017 Unknown Other malaise ICD-9: 780.79 ICD-10: R53.81 Active 04/22/2017 Unknown Right upper quadrant pain ICD-9: 789.01 ICD-10: R10.11 Active 12/24/2015 Unknown Problems Condition Codes Effective Dates Condition Status Low back pain ICD-9: 724.2 ICD-10: M54.5 04/22/2017 Active Muscle spasm of back ICD- 9: 724.8 ICD-10: M62.830 04/22/2017 Active Other fatigue ICD-9: 780.79 ICD-10: R53.83 04/22/2017 Active Other malaise ICD-9: 780.79 ICD-10: R53.81 04/22/2017 Active Right upper quadrant pain ICD-9: 789.01 ICD-10: R10.11 12/24/2015 Active Medications Medication Codes Instructions Start Date Stop Date Status Fill Instructions cyclobenzaprine 5 mg tablet RxNorm: 319244 1-2 Tablet(s) PO TID as needed 04/22/2017 04/26/2017 Inactive tramadol 50 mg tablet RxNorm: 668540 Tablet(s) PO Q6 as needed 12/25/2015 No Stop Date Active Vitamin B & C oral RxNorm: 428314 oral No Start Date Active Multiple Vitamin oral RxNorm: 59240 oral No Start Date Active tramadol 50 mg tablet RxNorm: 300221 Tablet(s) PO as needed No Start Date 12/24/2015 Inactive Medication Administered No Medication Administered data Immunizations No Immunization data Assessments Condition Codes Effective Dates Muscle spasm of back ICD-10: M62.830 ICD-9: 724.8 04/22/2017 Other fatigue ICD-10: R53.83 ICD-9: 780.79 04/22/2017 Other malaise ICD-10: R53.81 ICD-9: 780.79 04/22/2017 Low back pain ICD-10: M54.5 ICD-9: 724.2 04/22/2017 Right upper quadrant pain ICD-10: R10.11 ICD-9: 789.01 12/25/2015 Reason For Visit Reason For Visit Effective Dates Notes back pain 04/22/2017 abdominal pain 12/25/2015 Results Observation Observation Code Item Item Code Result Date [place] Spotted Fever Igg/Igm 976584 [place] SPOTTED FEVER IGM EIA . 04/30/2017 [place] Spotted Fever Igg/Igm 022444 RMSF, IGM 0.17 index 04/30/2017 [place] Spotted Fever Igg/Igm 635551 [place] SPOTTED FEVER IGG EIA FLEX . 04/30/2017 [place] Spotted Fever Igg/Igm 488312 RMSF, IGG SCREEN-FLEX Negative 04/30/2017 Ehrlichia Chaffeensis Antibody Igm 200097 EHRLICHIA CHAFFEENSIS IGM < 1:16 04/29/2017 Ehrlichia Chaffeensis Antibody Igg 078207 EHRLICHIA CHAFFEENSIS IGG <1:64 04/29/2017 Lymes Disease Total Antibodies With Western Blot Reflex [id number] B. BURGDORFERI, IGG/IGM 0.31 04/24/2017 Lymes Disease Total Antibodies With Western Blot Reflex [id number] 04/24/2017 Tsh Ord6 hTSH II 2.10 uIU/mL [...] 30.0 pg 04/22/2017 Cbc With Differential Ord2 [place]% 6.9 % 04/22/2017 Cbc With Differential Ord2 [...] 2.35 K/ul 04/22/2017 Cbc With Differential Ord2 [place] ABS# 0.5 K/ul 04/22/2017 Cbc With Differential Ord2 Eos ABS# 0.2 K/ul 04/22/2017 Cbc With Differential Ord2 Baso ABS# 0.0 K/ul 04/22/2017 Comp Metabolic Eip180 NA 138 mEq/L 04/22/2017 Comp Metabolic Lgv614 K 4.5 mEq/L 04/22/2017 Comp Metabolic Wpq853 CL 102 mEq/L 04/22/2017 Comp Metabolic Ywh850 CO2 26.0 mEq/L 04/22/2017 Comp Metabolic Cvy077 ANION GAP 15 04/22/2017 Comp Metabolic Vlx248 GLUCOSE 87 mg/dL 04/22/2017 Comp Metabolic Wsq029 Creat 1.0 mg/dL 04/22/2017 Comp Metabolic Efq707 eGFR 62 ml/min/1.73m2 04/22/2017 Comp Metabolic Dho394 BUN 15 mg/dL 04/22/2017 Comp Metabolic Ady086 B/C Ratio 15.3 Ratio 04/22/2017 Comp Metabolic Rjh765 CALCIUM 9.5 mg/dL 04/22/2017 Comp Metabolic Bpy487 ALK PHOS 39 U/L 04/22/2017 Comp Metabolic Tek285 AST(SGOT) 18 U/L 04/22/2017 Comp Metabolic Ujk388 ALT(SGPT) 16 U/L 04/22/2017 Comp Metabolic Uec628 BILI T 0.4 mg/dL 04/22/2017 Comp Metabolic Goj368 ALBUMIN 4.8 g/dL 04/22/2017 Comp Metabolic Zff084 TPRO 7.1 g/dL 04/22/2017 Comp Metabolic Azs440 GLOB 2.3 g/dL 04/22/2017 Comp Metabolic Djg299 A/G Ratio 2.1 Ratio 04/22/2017 Comp Metabolic Wxq724 Osmo 276 mOsmo 04/22/2017 Sed Rate Ord21 ESR 1 mm/hr 04/22/2017 Comp Metabolic Tvd676 NA 137 mEq/L 12/25/2015 Comp Metabolic Shg052 K 4.2 mEq/L 12/25/2015 Comp Metabolic Stk770 CL 105 mEq/L 12/25/2015 Comp Metabolic Vgr156 CO2 26.0 mEq/L 12/25/2015 Comp Metabolic Yde138 ANION GAP 10 12/25/2015 Comp Metabolic Vfs598 GLUCOSE 92 mg/dL 12/25/2015 Comp Metabolic Bwr685 Creat 1.0 mg/dL 12/25/2015 Comp Metabolic Zvu333 eGFR 62 ml/min/1.73m2 12/25/2015 Comp Metabolic Gyq368 BUN 15 mg/dL 12/25/2015 Comp Metabolic Nhm024 B/C Ratio 15.2 Ratio 12/25/2015 Comp Metabolic Zyz710 CALCIUM 9.6 mg/dL 12/25/2015 Comp Metabolic Lqh611 ALK PHOS 30 U/L 12/25/2015 Comp Metabolic Fkj516 AST(SGOT) 17 U/L 12/25/2015 Comp Metabolic Ziz218 ALT(SGPT) 16 U/L 12/25/2015 Comp Metabolic Hzr608 BILI T 0.6 mg/dL 12/25/2015 Comp Metabolic Cbi679 ALBUMIN 4.7 g/dL 12/25/2015 Comp Metabolic Ldo689 TPRO 7.0 g/dL 12/25/2015 Comp Metabolic Gir333 GLOB 2.3 g/dL 12/25/2015 Comp Metabolic Krd044 A/G Ratio 2.0 Ratio 12/25/2015 Comp Metabolic Aku688 Osmo 274 mOsmo 12/25/2015 Amylase Ord34 AMYLASE [...] 30.3 pg 12/25/2015 Cbc With Differential Ord2 [place]% 8.0 % 12/25/2015 Cbc With Differential Ord2 [...] 1.56 K/ul 12/25/2015 Cbc With Differential Ord2 [place] ABS# 0.4 K/ul 12/25/2015 Cbc With Differential Ord2 Eos ABS# 0.2 K/ul 12/25/2015 Cbc With Differential Ord2 Baso ABS# 0.0 K/ul 12/25/2015 Tsh Ord6 hTSH II 0.99 uIU/mL 12/25/2015 Review of Systems System Result Effective Dates Constitutional No recent illness 04/22/2017 Constitutional No [...] Codes Date URINALYSIS NONAUTO W/O SCOPE CPT-4: 16330 12/25/2015 Vital Signs Date Vital 04/22/2017 Blood Pressure 1: 118/68 Code: 8480-6 Heart Rate 1: 72 bpm Height: SpO2: 98% Weight: 12/25/2015 Blood Pressure 1: 120/70 Code: 8480-6 BMI: 25.0 Code: 85086-9 Heart Rate 1: 82 bpm Height: 5'6" SpO2: 97% Weight: 155 lbs Functional Status No Functional Status data History of Present Illness Symptom Name Status Result Effective Date Notes back pain Location lumbar-sacral spine 04/22/2017 None [...] data Encounters Encounter Performer Location Codes Date 85450 EST. PATIENT, LEVEL IV Diagnosis: Other fatigue[ICD10: R53.83] Diagnosis: Other malaise[ICD10: R53.81] Diagnosis: Low back pain[ICD10: M54.5] Diagnosis: Muscle spasm of back[ICD10: M62.830] April Melvin MD, [facility] CPT- 4: 67573 04/22/2017 ([id number]) OFFICE VISIT, NEW - LEVEL 3 Diagnosis: Right upper quadrant pain[ICD10: R10.11] Joanna Melvin MD, [facility] CPT-4: 87407 12/25/2015 Plan of Care Planned Activity Notes Codes Status Date Visit Plan: Low back pain/muscle spasm - [...] or concerns. 04/22/2017 Appointment: April Jha WPtel: [address] [place], [place] [id number] (30 min) Complex 04/22/2017 Patient Education: Patient Medication Summary Completed 04/22/2017 Visit Plan: RUQ pain-UA negative-recommend low fat diet-start prilosec 20mg daily-call if symptoms uncontrolled or new symptoms develop. Check labs today in the office. 12/25/2015 Appointment: Joanna Vickers WPtel: [address] [place], [place] [phone] New Patient 12/25/2015 Patient Education: Patient Medication Summary Completed 12/25/2015 Instructions Comment . Low back pain/muscle spasm [...] or with any changes, questions, or concerns. RECOMMEND PRILOSEC OTC LOW FAT, LOW SPICE DIET RECOMMEND SCREENING COLONOSCOPY . RUQ pain-UA negative-recommend low fat diet-start prilosec 20mg daily-call if symptoms uncontrolled or new symptoms develop. Check labs today in the office.
--- OUTSIDE RECORDS SUMMARY | 2018-11-09 17:02 | XMS REPORT | CCD ---
Author Author Joanna Vickers MD, [facility] Address [address] [place] [address] Phone Care Team Providers Care Assistant Corporate Controller Name Role Phone PP Unavailable CCM Unavailable Summary Purpose Interface Exchange Insurance Providers Payer name Policy type / Coverage type Covered constitution party ID Effective Begin Date Effective End Date Blue Cross Blue [facility] Blue Cross/[facility] [id number] Unknown Family history Mother Diagnosis Age At Onset Hyperlipidemia Unknown Social History Social History Element Codes Description Effective Dates Marital status Unknown Hardy 12/25/2015 Number of children Unknown 2 12/25/[address]: 7107627 Quit over 10 years ago 1992 12/25/[address]: 228780 Currently drinks alcohol 12/25/2015 Frequency of drinks SNOMED CT: 289263999 1- 4 drinks per week 12/25/2015 Allergies, [...] Instructions pantoprazole 40 mg tablet,delayed release RxNorm: 500306 1 Tablet(s) PO daily 02/26/2018 03/27/2018 Active tramadol 50 mg tablet RxNorm: 390530 1 Tablet(s) PO Q6 as needed 02/26/2018 03/27/2018 Active pantoprazole 40 mg tablet,delayed release RxNorm: 901740 1 Tablet(s) PO daily 02/26/2018 02/25/2018 Inactive Keflex 500 mg capsule RxNorm: 975319 1 Capsule(s) PO TID 09/14/2017 09/20/2017 Inactive Keflex 500 mg capsule RxNorm: 647662 1 Capsule(s) PO TID 09/14/2017 09/13/2017 Inactive cyclobenzaprine 5 mg tablet RxNorm: 389501 1-2 Tablet(s) PO TID as needed 04/22/2017 04/26/2017 Inactive tramadol 50 mg tablet RxNorm: 447104 Tablet(s) PO Q6 as needed 12/25/2015 02/25/2018 Inactive Vitamin B & C oral RxNorm: 362129 oral No Start Date Active Multiple Vitamin oral RxNorm: 80695 oral No Start Date Active tramadol 50 mg tablet RxNorm: 524539 Tablet(s) PO as needed No Start Date [...] aerobic growth sent to ref lab 09/15/2017 [place] Spotted Fever Igg/Igm 287297 [place] SPOTTED FEVER IGM EIA . 04/30/2017 [place] Spotted Fever Igg/Igm 578569 RMSF, IGM 0.17 index 04/30/2017 [place] Spotted Fever Igg/Igm 168105 [place] SPOTTED FEVER IGG EIA FLEX . 04/30/2017 [place] Spotted Fever Igg/Igm 778924 RMSF, IGG SCREEN-FLEX Negative 04/30/2017 Ehrlichia Chaffeensis Antibody Igm 846424 EHRLICHIA CHAFFEENSIS IGM < 1:16 04/29/2017 Ehrlichia Chaffeensis Antibody Igg 251440 EHRLICHIA CHAFFEENSIS IGG <1:64 04/29/2017 Lymes Disease Total Antibodies With Western Blot Reflex [id number] B. BURGDORFERI, IGG/IGM 0.31 04/24/2017 Lymes Disease Total Antibodies With Western Blot Reflex [id number] 04/24/2017 Tsh Ord6 hTSH II 2.10 uIU/mL [...] 30.0 pg 04/22/2017 Cbc With Differential Ord2 [place]% 6.9 % 04/22/2017 Cbc With Differential Ord2 [...] 2.35 K/ul 04/22/2017 Cbc With Differential Ord2 [place] ABS# 0.5 K/ul 04/22/2017 Cbc With Differential Ord2 Eos ABS# 0.2 K/ul 04/22/2017 Cbc With Differential Ord2 Baso ABS# 0.0 K/ul 04/22/2017 Comp Metabolic Tuj688 NA 138 mEq/L 04/22/2017 Comp Metabolic Vby079 K 4.5 mEq/L 04/22/2017 Comp Metabolic Xmh332 CL 102 mEq/L 04/22/2017 Comp Metabolic Ebj282 CO2 26.0 mEq/L 04/22/2017 Comp Metabolic Dlj892 ANION GAP 15 04/22/2017 Comp Metabolic Puc595 GLUCOSE 87 mg/dL 04/22/2017 Comp Metabolic Qjc053 Creat 1.0 mg/dL 04/22/2017 Comp Metabolic Rhf537 eGFR 62 ml/min/1.73m2 04/22/2017 Comp Metabolic Ecv713 BUN 15 mg/dL 04/22/2017 Comp Metabolic Cqf207 B/C Ratio 15.3 Ratio 04/22/2017 Comp Metabolic Rhv523 CALCIUM 9.5 mg/dL 04/22/2017 Comp Metabolic Dwm659 ALK PHOS 39 U/L 04/22/2017 Comp Metabolic Uia729 AST(SGOT) 18 U/L 04/22/2017 Comp Metabolic Ehq869 ALT(SGPT) 16 U/L 04/22/2017 Comp Metabolic Ipe056 BILI T 0.4 mg/dL 04/22/2017 Comp Metabolic Eny391 ALBUMIN 4.8 g/dL 04/22/2017 Comp Metabolic Bvt770 TPRO 7.1 g/dL 04/22/2017 Comp Metabolic Hoj215 GLOB 2.3 g/dL 04/22/2017 Comp Metabolic Dgz125 A/G Ratio 2.1 Ratio 04/22/2017 Comp Metabolic Crp725 Osmo 276 mOsmo 04/22/2017 Sed Rate Ord21 ESR 1 mm/hr 04/22/2017 Comp Metabolic Wdy017 NA 137 mEq/L 12/25/2015 Comp Metabolic Joe885 K 4.2 mEq/L 12/25/2015 Comp Metabolic Nza138 CL 105 mEq/L 12/25/2015 Comp Metabolic Rfg113 CO2 26.0 mEq/L 12/25/2015 Comp Metabolic Trx223 ANION GAP 10 12/25/2015 Comp Metabolic Dzh307 GLUCOSE 92 mg/dL 12/25/2015 Comp Metabolic Yyc822 Creat 1.0 mg/dL 12/25/2015 Comp Metabolic Pqv263 eGFR 62 ml/min/1.73m2 12/25/2015 Comp Metabolic Jec599 BUN 15 mg/dL 12/25/2015 Comp Metabolic Mwa374 B/C Ratio 15.2 Ratio 12/25/2015 Comp Metabolic Qrt427 CALCIUM 9.6 mg/dL 12/25/2015 Comp Metabolic Caf738 ALK PHOS 30 U/L 12/25/2015 Comp Metabolic Cjn659 AST(SGOT) 17 U/L 12/25/2015 Comp Metabolic Owl563 ALT(SGPT) 16 U/L 12/25/2015 Comp Metabolic Dbh569 BILI T 0.6 mg/dL 12/25/2015 Comp Metabolic Viz533 ALBUMIN 4.7 g/dL 12/25/2015 Comp Metabolic Vzb540 TPRO 7.0 g/dL 12/25/2015 Comp Metabolic Wdn983 GLOB 2.3 g/dL 12/25/2015 Comp Metabolic Jsb918 A/G Ratio 2.0 Ratio 12/25/2015 Comp Metabolic Nln485 Osmo 274 mOsmo 12/25/2015 Amylase Ord34 AMYLASE [...] 30.3 pg 12/25/2015 Cbc With Differential Ord2 [place]% 8.0 % 12/25/2015 Cbc With Differential Ord2 [...] 1.56 K/ul 12/25/2015 Cbc With Differential Ord2 [place] ABS# 0.4 K/ul 12/25/2015 Cbc With Differential [...] Codes Date URINALYSIS NONAUTO W/O SCOPE CPT-4: 12925 09/14/2017 URINALYSIS NONAUTO W/O SCOPE CPT-4: 03160 12/25/2015 Vital Signs Date Vital 02/12/2018 Blood Pressure 1: 104/60 Code: 8480-6 BMI: 26.1 Code: 78737-6 Heart Rate 1: 71 bpm Height: 5'6" SpO2: 95% Weight: 162 lbs 04/22/2017 Blood Pressure 1: 118/68 Code: 8480-6 Heart Rate 1: 72 bpm Height: SpO2: 98% Weight: 12/25/2015 Blood Pressure 1: 120/70 Code: 8480-6 BMI: 25.0 Code: 43891-9 Heart Rate 1: 82 bpm Height: 5'6" [...] constipation[ICD10: K59.01] [facility] CPT-4: 49695 02/12/2018 99076 EST. PATIENT, LEVEL IV Diagnosis: Other fatigue[ICD10: R53.83] Diagnosis: Other malaise[ICD10: R53.81] Diagnosis: Low back pain[ICD10: M54.5] Diagnosis: Muscle spasm of back[ICD10: M62.830] [facility] CPT- 4: 99888 04/22/2017 ([id number]) OFFICE VISIT, NEW - LEVEL 3 Diagnosis: Right upper quadrant pain[ICD10: R10.11] [facility] CPT-4: 82169 12/25/2015 Plan of Care Planned Activity Notes Codes Status Date Care Plan: Referral Order SNOMED-CT : 048954203 Pending 02/15/2018 Care Plan: CT ABD & PELV W/CONTRAST LOINC : 14279-7 Pending 02/15/2018 [facility] [phone] [facility] ([facility]) Moderate 02/12/2018 Patient Education: Patient Medication Summary Completed 02/12/2018 Appointment: Lab Draw 09/14/2017 Patient Education: Patient Medication Summary Completed 09/14/2017 [facility]ment: [facility] [phone] [facility] (30 min) Complex 04/22/2017 Patient Education: Patient Medication Summary Completed 04/22/2017 Appointment: [facility] [phone] [facility] New Patient 12/25/2015 Patient Education: Patient Medication Summary Completed 12/25/2015 Referral: External, Ordering Provider pt will be called with appt date and time Initiated Referral: External, Ordering Provider Referral Initiated Instructions No Instructions
--- OUTSIDE RECORDS SUMMARY | 2018-11-09 17:03 | XMS REPORT | CCD ---
Author Author Joanna Vicekrs MD, [facility] Address [facility] [place] [address] Phone Care Team Providers Care Customer Training Specialist Name Role Phone PP Unavailable CCM Unavailable Summary Purpose Interface Exchange Insurance Providers Payer name Policy type / Coverage type Covered democrat ID Effective Begin Date Effective End Date Blue Cross Blue [facility] Blue Cross/Blue Shield [id number] Unknown Unknown Family history Mother Diagnosis Age At Onset Hyperlipidemia Unknown Social History Social History Element Codes Description Effective Dates Marital status Unknown Hardy 12/25/2015 Number of children Unknown 2 12/25/[address]: 6635560 Quit over 10 years ago 1992 12/25/[address]: 166096 Currently drinks alcohol 12/25/2015 Frequency of drinks SNOMED CT: 178278349 1- 4 drinks per week 12/25/2015 Allergies, [...] Fill Instructions cyclobenzaprine 5 mg tablet RxNorm: 618148 1-2 Tablet(s) PO TID as needed 04/22/2017 04/26/2017 Inactive tramadol 50 mg tablet RxNorm: 456695 Tablet(s) PO Q6 as needed 12/25/2015 No Stop Date Active Vitamin B & C oral RxNorm: 463843 oral No Start Date Active Multiple Vitamin oral RxNorm: 98371 oral No Start Date Active tramadol 50 mg tablet RxNorm: 055304 Tablet(s) PO as needed No Start Date [...] Observation Code Item Item Code Result Date [place] Spotted Fever Igg/Igm 709243 [place] SPOTTED FEVER IGM EIA . 04/30/2017 [place] Spotted Fever Igg/Igm 492404 RMSF, IGM 0.17 index 04/30/2017 [place] Spotted Fever Igg/Igm 574101 [place] SPOTTED FEVER IGG EIA FLEX . 04/30/2017 [place] Spotted Fever Igg/Igm 941683 RMSF, IGG SCREEN-FLEX Negative 04/30/2017 Ehrlichia Chaffeensis Antibody Igm 602498 EHRLICHIA CHAFFEENSIS IGM < 1:16 04/29/2017 Ehrlichia Chaffeensis Antibody Igg 360211 EHRLICHIA CHAFFEENSIS IGG <1:64 04/29/2017 Lymes Disease Total Antibodies With Western Blot Reflex [id number] B. BURGDORFERI, IGG/IGM 0.31 04/24/2017 Lymes Disease Total Antibodies With Western Blot Reflex [id number] 04/24/2017 Tsh Ord6 hTSH II 2.10 uIU/mL [...] 30.0 pg 04/22/2017 Cbc With Differential Ord2 [place]% 6.9 % 04/22/2017 Cbc With Differential Ord2 [...] 2.35 K/ul 04/22/2017 Cbc With Differential Ord2 [place] ABS# 0.5 K/ul 04/22/2017 Cbc With Differential Ord2 Eos ABS# 0.2 K/ul 04/22/2017 Cbc With Differential Ord2 Baso ABS# 0.0 K/ul 04/22/2017 Comp Metabolic Tbs553 NA 138 mEq/L 04/22/2017 Comp Metabolic Ycx471 K 4.5 mEq/L 04/22/2017 Comp Metabolic Qnj855 CL 102 mEq/L 04/22/2017 Comp Metabolic Uqq692 CO2 26.0 mEq/L 04/22/2017 Comp Metabolic Hcg535 ANION GAP 15 04/22/2017 Comp Metabolic Opw392 GLUCOSE 87 mg/dL 04/22/2017 Comp Metabolic Tbx866 Creat 1.0 mg/dL 04/22/2017 Comp Metabolic Efr975 eGFR 62 ml/min/1.73m2 04/22/2017 Comp Metabolic Ckj336 BUN 15 mg/dL 04/22/2017 Comp Metabolic Nnv603 B/C Ratio 15.3 Ratio 04/22/2017 Comp Metabolic Srm656 CALCIUM 9.5 mg/dL 04/22/2017 Comp Metabolic Iud636 ALK PHOS 39 U/L 04/22/2017 Comp Metabolic Xry546 AST(SGOT) 18 U/L 04/22/2017 Comp Metabolic Wcb081 ALT(SGPT) 16 U/L 04/22/2017 Comp Metabolic Fxz327 BILI T 0.4 mg/dL 04/22/2017 Comp Metabolic Llr408 ALBUMIN 4.8 g/dL 04/22/2017 Comp Metabolic Dkv753 TPRO 7.1 g/dL 04/22/2017 Comp Metabolic Tfb102 GLOB 2.3 g/dL 04/22/2017 Comp Metabolic Ozw477 A/G Ratio 2.1 Ratio 04/22/2017 Comp Metabolic Ugf479 Osmo 276 mOsmo 04/22/2017 Sed Rate Ord21 ESR 1 mm/hr 04/22/2017 Comp Metabolic Mym246 NA 137 mEq/L 12/25/2015 Comp Metabolic Zod095 K 4.2 mEq/L 12/25/2015 Comp Metabolic Cpk048 CL 105 mEq/L 12/25/2015 Comp Metabolic Zhi810 CO2 26.0 mEq/L 12/25/2015 Comp Metabolic Mtx724 ANION GAP 10 12/25/2015 Comp Metabolic Nhg634 GLUCOSE 92 mg/dL 12/25/2015 Comp Metabolic Rez141 Creat 1.0 mg/dL 12/25/2015 Comp Metabolic Tka548 eGFR 62 ml/min/1.73m2 12/25/2015 Comp Metabolic Bqm522 BUN 15 mg/dL 12/25/2015 Comp Metabolic Crn847 B/C Ratio 15.2 Ratio 12/25/2015 Comp Metabolic Pgn254 CALCIUM 9.6 mg/dL 12/25/2015 Comp Metabolic Rsi381 ALK PHOS 30 U/L 12/25/2015 Comp Metabolic Ffj401 AST(SGOT) 17 U/L 12/25/2015 Comp Metabolic Kaf429 ALT(SGPT) 16 U/L 12/25/2015 Comp Metabolic Xfr166 BILI T 0.6 mg/dL 12/25/2015 Comp Metabolic Qzw677 ALBUMIN 4.7 g/dL 12/25/2015 Comp Metabolic Zqa389 TPRO 7.0 g/dL 12/25/2015 Comp Metabolic Dvu599 GLOB 2.3 g/dL 12/25/2015 Comp Metabolic Esr199 A/G Ratio 2.0 Ratio 12/25/2015 Comp Metabolic Had262 Osmo 274 mOsmo 12/25/2015 Amylase Ord34 AMYLASE [...] 30.3 pg 12/25/2015 Cbc With Differential Ord2 [place]% 8.0 % 12/25/2015 Cbc With Differential Ord2 [...] 1.56 K/ul 12/25/2015 Cbc With Differential Ord2 [place] ABS# 0.4 K/ul 12/25/2015 Cbc With Differential [...] Codes Date URINALYSIS NONAUTO W/O SCOPE CPT-4: 25128 12/25/2015 Vital Signs Date Vital 04/22/2017 Blood Pressure 1: 118/68 Code: 8480-6 Heart Rate 1: 72 bpm Height: SpO2: 98% Weight: 12/25/2015 Blood Pressure 1: 120/70 Code: 8480-6 BMI: 25.0 Code: 01815-5 Heart Rate 1: 82 bpm Height: 5'6" [...] data Encounters Encounter Performer Location Codes Date 13757 EST. PATIENT, LEVEL IV Diagnosis: Other fatigue[ICD10: R53.83] Diagnosis: Other malaise[ICD10: R53.81] Diagnosis: Low back pain[ICD10: M54.5] Diagnosis: Muscle spasm of back[ICD10: M62.830] April Melvin MD, [facility] CPT- 4: 98609 04/22/2017 ([id number]) OFFICE VISIT, NEW - LEVEL 3 Diagnosis: Right upper quadrant pain[ICD10: R10.11] Joanna Melvin MD, [facility] CPT-4: 77065 12/25/2015 Plan of Care Planned Activity Notes [...] or concerns. 04/22/2017 Appointment: April Jha WPtel: [address] [place], [place] [id number] (30 min) Complex 04/22/2017 Patient Education: Patient Medication Summary Completed 04/22/2017 Visit Plan: RUQ pain-UA negative-recommend low fat diet-start prilosec 20mg daily-call if symptoms uncontrolled or new symptoms develop. Check labs today in the office. 12/25/2015 Appointment: Joanna Vickers WPtel: [address] [place], [place] [phone] New Patient 12/25/2015 Patient Education: Patient Medication [...]
[2018-11-09] MEDS ORDERED: LINEZOLID 600MG/300ML IVPB (PRE-MIX) IV ONE (17:15)
[2018-11-09 17:20] VITALS: BP 105/73
--- NOTE | 2018-11-09 18:00 | NUR ---
C/O MILD BURNING AT IV SITE. NO REDNESS, SWELLING OR BRUISING AT SITE. INFUSION RATE DECREASED FROM 300 ML/HR TO 200 ML/HR PER PUMP.
--- NOTE | 2018-11-09 18:10 | NUR ---
REPORTS SLOWER IV RATE HAS HELPED C/O BURNING AT IV SITE. DENIES PAIN.
--- NOTE | 2018-11-09 18:30 | NUR ---
INFUSION COMPLETE, IV SITE CLEAR, DENIES COMPLAINTS. WILL FOLLOW UP WITH ROBLES CORRIGAN, TOMORROW AM.
== END 2018-11-09 18:30 | disposition home or self-care (01) ==
LOC: SDC 16:51
PROVIDERS: ATTEND Family Medicine
DX: L03.90 Cellulitis, unspecified (principal)
CPT/HCPCS: 96365

== ENCOUNTER → 2019-04-13 | Outpatient (CLI) | payer BC ==
--- NOTE | 2019-04-13 11:35 | Diagnostic Imaging Report ---
EXAM: RIGHT UPPER QUADRANT ULTRASOUND. DATE: April 13, 2019. COMPARISON: MRI abdomen of February 27, 2018. INDICATION: 58-year-old female, right upper quadrant abdominal pain. PROCEDURE: Two dimensional grayscale and color Doppler ultrasound examination of the right upper quadrant was performed. FINDINGS: Liver: The outer liver contours are not nodular. There is an anechoic lesion in the right lobe of the liver measuring 1.2 x 0.9 x 1.2 cm in size, consistent with a benign hepatic cyst. The main portal vein is patent. Bile ducts and gallbladder: There is no pericholecystic fluid, gallbladder wall thickening, or gallstones. The gallbladder wall measures 0.2 cm. There is no intrahepatic or extrahepatic biliary ductal dilation. The common bile duct measures 0.4 cm. Right kidney: Unremarkable right kidney. No hydronephrosis. The right kidney measures 10.1 cm x 4.5 cm x 4.1 cm. Pancreas: Normal visualized pancreas. IMPRESSION: 1. Benign hepatic cyst measuring 1.2 cm in size. Additional evaluation of the liver on ultrasound is unremarkable. 2. No evidence of cholelithiasis or acute cholecystitis. No biliary ductal dilation. 3. Additional right upper quadrant abdominal ultrasound evaluation is unremarkable. Dictated by: Dictated on workstation # [id number]
== END ==
LOC: RAD 08:38
PROVIDERS: ATTEND Nurse Practitioner Family
DX: K76.89 Other specified diseases of liver (principal); R10.11 Right upper quadrant pain
CPT/HCPCS: 76705

== ENCOUNTER → 2019-04-14 | Outpatient (CLI) | payer BC ==
[~2019-04-14] MED LIST changes: +CATHETER FLUSH 10 ML SYR IV PRN
--- NOTE | 2019-04-14 10:26 | Diagnostic Imaging Report ---
Indication: Abdominal pain After intravenous administration of 5.4 mCi technetium 99m Choletec, scintigraphic images of the upper abdomen are obtained. Initial images reveal normal distribution of activity throughout the liver. There is prompt appearance of activity in the biliary tree and gallbladder. Activity passes freely into the small bowel. Oral Ensure was administered with gallbladder ejection fraction calculated to be 42%. Impression: Normal hepatobiliary scan without evidence of cholecystitis or biliary obstruction. Gallbladder ejection fraction at the lower limits of normal. Dictated by: Dictated on workstation # [id number]
== END ==
LOC: CARD 06:49
PROVIDERS: ATTEND Nurse Practitioner Family
DX: R10.11 Right upper quadrant pain (principal)
CPT/HCPCS: 78227

== ENCOUNTER 2019-04-28 05:37 | Outpatient (CLI) | payer BC ==
[~2019-04-28] VITALS: Ht 167 cm; Wt 75.0 kg
[~2019-04-28 05:37] MED LIST changes: -CATHETER FLUSH 10 ML SYR IV PRN
[2019-04-28] MEDS ORDERED: SUCR1TAB36 PO (11:46)
[2019-04-28] MEDS ORDERED: PANT40TA3 PO (11:46)
[2019-05-03] MEDS ORDERED: HYDR-3816 PO (10:10)
== END 2019-04-28 11:58 | disposition home or self-care (01) ==
LOC: PREOP 05:37
PROVIDERS: ATTEND Surgery
DX: Z01.818 Encounter for other preprocedural examination (principal)

== ENCOUNTER → 2023-02-12 | Outpatient (CLI) | payer BC ==
[~2023-02-12] MED LIST changes: +CYCL10TA25 PO; -CYCL10TA9 PO; +HYDR-34 PO; +IOHEXOL 350 MG/ML 100 ML (OMNIPAQUE 350) VIAL IV ONE; +NS 100 ML (IVPB) BAG IV ONE; +PANT40TA52 PO; +SUCR1TAB36 PO
--- NOTE | 2023-02-12 16:12 | Diagnostic Imaging Report ---
PROCEDURE: CT abdomen and pelvis with contrast. TECHNIQUE: Multiple contiguous axial images were obtained through the abdomen and pelvis after administration of intravenous contrast. Auto Exposure Controls were utilized during the CT exam to meet ALARA standards for radiation dose reduction. All CT scans use one or more of the following dose optimizing techniques: automated exposure control, MA and/or KvP adjustment based on patient size and exam type or iterative reconstruction. INDICATION: Abdominal pain with nausea, diarrhea, induration of approximately 2 months. COMPARISON: 02/12/2018 There is mild linear atelectasis and/or scarring in the lung bases. There has been interval cholecystectomy with mild increase in biliary ductal prominence likely due to reservoir effect. Subcentimeter cysts are also present within both lobes of the liver. There is no evidence of pancreatic, adrenal gland or splenic abnormality. Small hiatal hernia is noted. Kidneys are unremarkable, bilaterally. There is no abdominal free fluid. Note is made of mild fatty herniation at the level of the umbilicus. There is no evidence of bowel obstruction. Surgical clips are seen bilaterally in the pelvis. Unopacified bladder is unremarkable. Uterus is absent. There is mild lower lumbar spondylosis. Urinary bladder is decompressed without other evidence of abnormality. IMPRESSION: No acute abnormality. Dictated by: Dictated on workstation # [id number]
--- NOTE | 2023-02-12 18:15 | Diagnostic Imaging Report ---
3-D bilateral screening mammogram with CAD. There are no prior studies available for comparison. At this time there are no current complaints. The fibroglandular tissue in both breasts is heterogeneously dense. This does limit the sensitivity of this exam. There is no primary or secondary sign of malignancy noted. However on the MLO view of the right breast along the superior most portion of the image there is a soft tissue density overlying the pectoralis muscle. There is no corresponding abnormality seen on the craniocaudad view and this finding may be secondary to superimposition. It would be unlikely that there is a mass in this region. Even so, I would recommend ultrasound of the right axilla be performed for further evaluation. Impression: There is no evidence for malignancy involving either breast. However there is a question of a mass in the right axilla. Ultrasound would be recommended for further study. ACR BI-RADS Category 0: Incomplete. (Needs additional imaging evaluation). Result letter will be mailed to the patient. Note: At least 10% of breast cancer is not imaged by mammography. Dictated by: Dictated on workstation # [id number]
== END ==
LOC: RAD 14:55
PROVIDERS: ATTEND Physician Assistant
DX: R19.7 Diarrhea, unspecified (principal); R11.0 Nausea; Z12.31 Encounter for screening mammogram for malignant neoplasm of breast
CPT/HCPCS: 74177; 77063; 77067

== ENCOUNTER → 2023-02-12 | Outpatient (CLI) | payer BC ==
[~2023-02-12] MED LIST changes: -IOHEXOL 350 MG/ML 100 ML (OMNIPAQUE 350) VIAL IV ONE; -NS 100 ML (IVPB) BAG IV ONE
== END ==
LOC: RAD 15:30
PROVIDERS: ATTEND Physician Assistant
DX: Z12.31 Encounter for screening mammogram for malignant neoplasm of breast (principal); Z53.9 Procedure and treatment not carried out, unspecified reason

== ENCOUNTER → 2023-03-09 | Outpatient (CLI) | payer BC ==
--- NOTE | 2023-03-09 15:28 | Diagnostic Imaging Report ---
INDICATION: Abnormal screening mammogram demonstrating a right breast density. Study is performed for further evaluation. Correlation is made with screening mammogram from 02/12/2023. Sonographic interrogation of the upper right breast near the right axilla was performed. No sonographic abnormality is detected. No solid or cystic masses detected. IMPRESSION: No sonographic abnormality is detected. Patient may return to routine annual screening mammography. ACR BI-RADS Category 1: Negative. Result letter will be mailed to the patient. Note: At least 10% of breast cancer is not imaged by mammography. BI-RADS Category 1 Dictated by: Dictated on workstation # [id number]
== END ==
LOC: RAD 12:29
PROVIDERS: ATTEND Family Medicine
DX: R22.31 Localized swelling, mass and lump, right upper limb (principal); R92.8 Other abnormal and inconclusive findings on diagnostic imaging of breast